=== PATIENT | male | born 1965 ===

== ENCOUNTER 2016-10-23 10:27 | Inpatient (IN) | payer OTHER ==
[2016-10-23 10:34] VITALS: BMI 21.2
--- NOTE | 2016-10-23 11:14 | ED PDOC ---
HPI: General Adult Time Seen by Provider: 10/23/16 10:39 Chief Complaint (Nursing): Weakness/Neurological Deficit Chief Complaint (Provider): Weakness History Per: Patient, Family History/Exam Limitations: no limitations Onset/Duration Of Symptoms: Days Current Symptoms Are (Timing): Still Present Additional Complaint(s): Patient is a 51 year old male who presents to ED accompanied by family for 6 months of generalized weakness, weight loss and dry mouth. Patient states that he has unintentionally lost 50 pounds in 6 months with increased weakness. States that his feet occasionally swell making it difficult to walk. Denies any onset symptoms. States that due to transportation complications he is unable to make it to the clinic for evaluation. Denies appetite changes, nausea, vomiting or dizziness. Past Medical History Reviewed: Historical Data, Nursing Documentation, Vital Signs Vital Signs: Last Vital Signs Temp 98.1 F 10/25/16 08:25 Pulse 76 10/25/16 08:25 Resp 20 10/25/16 08:25 BP 99/65 L 10/25/16 08:25 Pulse Ox 96 10/25/16 08:25 - Medical History PMH: No Chronic Diseases - Surgical History Surgical History: No Surg Hx - Family History Family History: States: No Known Family Hx - Living Arrangements Living Arrangements: Alone - Social History Current smoker - smoking cessation education provided: Yes Alcohol: Occasional Drugs: Denies - Immunization History Hx Tetanus Toxoid Vaccination: No Hx Influenza Vaccination: No Hx Pneumococcal Vaccination: No - Home Medications Home Medications: Ambulatory Orders Medication Instructions Recorded No Known Home Med 10/23/16 - Allergies Allergies/Adverse Reactions: Allergies Allergy/AdvReac Type Severity Reaction Status Date / Time No Known Allergies Allergy Verified 10/23/16 11:00 Review of Systems ROS Statement: Except As Marked, All Systems Reviewed And Found Negative Constitutional: Positive for: Weakness (generalized), Weight loss. Negative for : Fever, Chills Eyes: Negative for: Vision Change Cardiovascular: Negative for: Chest Pain, Palpitations Respiratory: Negative for: Shortness of Breath Gastrointestinal: Negative for: Nausea, Vomiting, Abdominal Pain, Diarrhea Skin: Negative for: Rash Neurological: Negative for: Weakness, Numbness, Headache, Dizziness Physical Exam - Reviewed Nursing Documentation Reviewed: Yes Vital Signs Reviewed: Yes - Physical Exam Appears: Positive for: Non-toxic (thin appearing), No Acute Distress Skin: Positive for: Normal Color, Warm Eye Exam: Positive for: Normal appearance, PERRL Neck: Positive for: Normal, Painless ROM Cardiovascular/Chest: Positive for: Regular Rate, Rhythm. Negative for: Murmur Respiratory: Positive for: Normal Breath Sounds. Negative for: Respiratory Distress Gastrointestinal/Abdominal: Positive for: Normal Exam. Negative for: Tenderness , Distended Extremity: Positive for: Normal ROM. Negative for: Pedal Edema Neurologic/Psych: Positive for: Alert, Oriented. Negative for: Motor/Sensory Deficits - Laboratory Results Result Diagrams: 10/24/16 06:40 10/25/16 06:10 - ECG Interpretation Of ECG: NSR @ 93, nonspecific ST and T abnormality. O2 Sat by Pulse Oximetry: 96 (RA) Pulse Ox Interpretation: Normal - Radiology X-Ray: Read By Radiologist (No focal airspace opacity. Please note that chest radiographs have low sensitivity for small pulmonary nodules. If indicated, chest CT should be obtained.) Medical Decision Making Medical Decision Making: Time: 1105 Initial impression: Weight loss Initial plan: -- EKG -- CMP -- Urine dip -- CBC -- CXR -- U/A Scribe Attestation: Documented by Fauzia Holly acting as a scribe for Natividad Angeles MD MD Scribe Attestation: All medical record entries made by the Scribe were at my direction and personally dictated by me. I have reviewed the chart and agree that the record accurately reflects my personal performance of the history, physical exam, medical decision making, and the department course for this patient. I have also personally directed, reviewed, and agree with the discharge instructions and disposition. Disposition - Clinical Impression Clinical Impression: Diabetes mellitus, new onset - Patient ED Disposition Is Patient to be Admitted: Yes - Disposition Disposition Time: 12:30 Condition: STABLE - Pt Status Changed To: Hospital Disposition Of: Inpatient - Admit Certification Admit to Inpatient:: After my assessment, the patient will require hospitalization for at least two midnights. This is because of the severity of symptoms shown, intensity of services needed, and/or the medical risk in this patient being treated as an outpatient. - POA Present On Arrival: Poor Glycemic Control
[2016-10-23] MEDS ORDERED: Sodium Chloride 0.9% 1,000 ML IV STA ×2 (11:30→12:03)
[2016-10-23 11:37] LABS: BASO % 0.4 % (0.0-2.0); EOS % 0.1 % (0.0-4.0); HEMATOCRIT 41.5 % (35.0-51.0); LYMPH # 0.9 K/uL (1.0-4.3); MEAN CELL VOLUME 99.8 fl (80.0-94.0); MEAN CORPUSCULAR HEMOGLOBIN 33.3 pg (27.0-31.0); MEAN CORPUSCULAR HGB CONC 33.3 g/dL (33.0-37.0); MEAN PLATELET VOLUME 7.9 fl (7.2-11.7); MONO # 0.3 K/uL (0.0-0.8); MONO % 5.6 % (0.0-10.0); NEUT # 4.2 K/uL (1.8-7.0); NEUT % 77.9 % (50.0-75.0); NRBC % 0.1 % (0.0-0.0); RED CELL DISTRIBUTION WIDTH 13.1 % (11.5-14.5); WHITE BLOOD COUNT 5.3 K/uL (4.8-10.8)
[2016-10-23 11:51] LABS: ALB/GLOB RATIO 1.4 (1.0-2.1); ALKALINE PHOSPHATASE 250 U/L (38-126); ALT/SGPT 25 U/L (21-72); AST/SGOT 72 U/L (17-59); BILIRUBIN,TOTAL 1.6 mg/dl (0.2-1.3); BLOOD UREA NITROGEN 12 mg/dl (9-20); CALCIUM 8.7 mg/dL (8.4-10.2); CARBON DIOXIDE 21 mmol/L (22-30); CHLORIDE 92 mmol/L (98-107); GFR AFRICAN-AMERICAN > 60; POTASSIUM 5.4 MMOL/L (3.6-5.0); RBC URINE 1 /hpf (0-3); SODIUM 127 mmol/l (132-148); TOTAL PROTEIN 8.2 G/DL (6.3-8.2); URINE BILIRUBIN NEGATIVE (NEGATIVE); URINE BLOOD NEGATIVE (NEGATIVE); URINE COLOR STRAW (YELLOW); URINE GLUCOSE (UA) >=500 mg/dL (Normal); URINE KETONE TRACE mg/dL (NEGATIVE); URINE LEUKOCYTE ESTERASE NEG Leu/uL (Negative); URINE PROTEIN NEGATIVE (NEGATIVE); URINE UROBILINOGEN 0.2-1.0 mg/dL (0.2-1.0); WBC URINE < 1 /hpf (0-5)
[2016-10-23 12:03] LABS: GLUCOSE,RANDOM 862 mg/dL (75-110)
[2016-10-23 12:07] LABS: VENOUS BLOOD GAS BASE EXCESS 0.3 mmol/L (0.0-2.0); VENOUS BLOOD GAS PCO2 42 mmHg (40-60); VENOUS BLOOD PH 7.39 (7.32-7.43)
--- NOTE | 2016-10-23 12:08 | RAD ---
HISTORY: Weight loss COMPARISON: No prior. TECHNIQUE: Chest PA and lateral FINDINGS: LUNGS: No focal airspace opacity. PLEURA: No significant pleural effusion identified. No pneumothorax apparent. CARDIOVASCULAR: Normal. OSSEOUS STRUCTURES: No significant abnormalities. VISUALIZED UPPER ABDOMEN: Normal. OTHER FINDINGS: None. IMPRESSION: No focal airspace opacity. Please note that chest radiographs have low sensitivity for small pulmonary nodules. If indicated, chest CT should be obtained.
--- NOTE | 2016-10-23 12:37 | CP.PCM.HP ---
History of Present Illness - History of Present Illness History of Present Illness: Chief Complaint: dizzy, weak HPI: 51 year old no known chronic diseases presents with a 6 month hx of 50 lb weight loss, and a 1 day history of moderate worsening weakness associated with fatigue, dizziness. Patient also complains of blurry vision for the past few months, as well as paresthesias in bilateral feet when walking. In ER, glucose 800+. 2 liters NS given, 10 units insulin. Patient not acidotic, no AG, trace ketones in urine. Pt to be admitted for new onset diabetes, will monitor and correct glucose closely. Vitals are stable no acute distress. ROS: as per HPI, all other systems reviewed and negative by me PMH: denies PSH: denies Family History: denies Social History: denies ETOH, IVDU. occasional tobacco use Home Medications: denies Allergies: NKDA VITALS REVIEWED Constitutional- thin, cooperative, awake, alert. Head- NCAT, PERRL Eye- PERRL, normal accommodation ENT- normal exam, MMM. Neck- normal inspection, supple, no JVD Respiratory- decreased BS, no wheezes rales rhonchi Cardiovascular- RRR, +S1, +S2 no MRG GI/Abdominal- normal bowel sounds, soft Extremities Exam- normal capillary refill, normal inspection Neurological Exam- alert, oriented Labs: 10/23/16 11:24 10/23/16 11:24 Imaging Studies: CXR: no active disease Active Medications: 10/23/16 12:03 Sodium Chloride 0.9% 1,000 ml IV 1,000 mls/hr 10/23/16 16:30 Insulin Lispro [humALOG] See Protocol [facility] 10/24/16 09:00 Enoxaparin [Lovenox] 40 mg SC DAILY Assessment and Plan: 51 year old no known chronic diseases presents with a 6 month hx of 50 lb weight loss, and a 1 day history of moderate worsening weakness associated with fatigue, dizziness. Patient also complains of blurry vision for the past few months, as well as paresthesias in bilateral feet when walking. In ER, glucose 800+. 2 liters NS given, 10 units insulin. No acidosis, no AG, trace ketones in urine. Pt to be admitted for new onset diabetes, will monitor and correct glucose closely. Repeat BMP currently pending. New Onset DM/H BG 862 on arrival to ER, after 10 units Regular insulin BG 447 A1C 18.6 Accuchecks q4 hour on ISS protocol Received 2 L NS in ER, 1 more liter ordered on floor Then continue to hydrate patient NS @ 125cc/hr Repeat BMP again tonight given insulin use Glipizide 10 BID before meals Levemir 10 u HS to start tonight Consult Dr. Thayer Endocrinology Hypokalemia 3.5 with insulin use KCl 40 mEq given once Repeat BMP scds Present on Admission - Present on Admission Any Indicators Present on Admission: No Past Patient History - Past Social History Alcohol: Occasional Drugs: Denies - PSYCHIATRIC Hx Substance Use: No Meds Allergies/Adverse Reactions: Allergies Allergy/AdvReac Type Severity Reaction Status Date / Time No Known Allergies Allergy Verified 10/23/16 11:00 Results - Vital Signs Recent Vital Signs: Last Vital Signs Temp 98.3 F 10/23/16 10:34 Pulse 99 H 10/23/16 10:34 Resp 19 10/23/16 10:34 BP 125/78 10/23/16 10:34 Pulse Ox 96 10/23/16 11:20 - Labs Result Diagrams: 10/23/16 11:24 10/23/16 11:24 Labs: Laboratory Results - last 24 hr 10/23/16 10/23/16 10/23/16 11:24 11:24 11:24 WBC 5.3 RBC 4.16 L Hgb 13.8 Hct 41.5 MCV 99.8 H MCH 33.3 H MCHC 33.3 RDW 13.1 Plt Count 277 MPV 7.9 Neut % (Auto) 77.9 H Lymph % (Auto) 16.0 L Day % (Auto) 5.6 Eos % (Auto) 0.1 Baso % (Auto) 0.4 Neut # 4.2 Lymph # 0.9 L Day # 0.3 Eos # 0.0 Baso # 0.0 pO2 VBG pH VBG pCO2 VBG HCO3 VBG O2 Sat (Calc) VBG Base Excess Sodium 127 L Potassium 5.4 H Chloride 92 L Carbon Dioxide 21 L Anion Gap 19 BUN 12 Creatinine 0.4 L Est GFR ( Amer) > 60 Est GFR (Non-Af Amer) > 60 Random Glucose 862 H* Calcium 8.7 Total Bilirubin 1.6 H AST 72 H ALT 25 Alkaline Phosphatase 250 H Total Protein 8.2 Albumin 4.8 Globulin 3.4 Albumin/Globulin Ratio 1.4 Urine Color Straw Urine Clarity Clear Urine pH 6.0 Ur Specific Carnation 1.028 Urine Protein Negative Urine Glucose (UA) >=500 Urine Ketones Trace Urine Blood Negative Urine Nitrate Negative Urine Bilirubin Negative Urine Urobilinogen 0.2-1.0 Ur Leukocyte Esterase Neg Urine RBC (Auto) 1 Urine Microscopic WBC < 1 10/23/16 12:04 WBC RBC Hgb Hct MCV MCH MCHC RDW Plt Count MPV Neut % (Auto) Lymph % (Auto) Day % (Auto) Eos % (Auto) Baso % (Auto) Neut # Lymph # Day # Eos # Baso # pO2 81 H VBG pH 7.39 VBG pCO2 42 VBG HCO3 25.1 VBG O2 Sat (Calc) 96.7 H VBG Base Excess 0.3 Sodium Potassium Chloride Carbon Dioxide Anion Gap BUN Creatinine Est GFR ( Amer) Est GFR (Non-Af Amer) Random Glucose Calcium Total Bilirubin AST ALT Alkaline Phosphatase Total Protein Albumin Globulin Albumin/Globulin Ratio Urine Color Urine Clarity Urine pH Ur Specific Carnation Urine Protein Urine Glucose (UA) Urine Ketones Urine Blood Urine Nitrate Urine Bilirubin Urine Urobilinogen Ur Leukocyte Esterase Urine RBC (Auto) Urine Microscopic WBC
[2016-10-23] MEDS ORDERED: Insulin Lispro (humaLOG) 100 Units/ml Inj SC STA ×2 (13:45→15:28)
[2016-10-23] MEDS ORDERED: Insulin Regular 100 units/ml SC STA (13:48)
[2016-10-23 15:20] LABS: BLOOD UREA NITROGEN 10 mg/dl (9-20); CALCIUM 8.3 mg/dL (8.4-10.2); CARBON DIOXIDE 21 mmol/L (22-30); CHLORIDE 99 mmol/L (98-107); GFR AFRICAN-AMERICAN > 60; POTASSIUM 3.5 MMOL/L (3.6-5.0); SODIUM 132 mmol/l (132-148)
[2016-10-23 15:23] LABS: GLUCOSE,RANDOM 596 mg/dL (75-110)
[2016-10-23] MEDS ORDERED: Potassium Chloride 20 mEq/15 ml LIQ UD PO ONE (15:27)
[2016-10-23] MEDS: Sodium Chloride 0.9% 1,000 ML IV SCH ×2 (15:45→21:15)
[2016-10-23] MEDS ORDERED: Sodium Chloride 0.9% 1,000 ML IV SCH (15:45)
[2016-10-23] MEDS ORDERED: Insulin Lispro (humaLOG) 100 Units/ml Inj SC SCH (16:30)
[2016-10-23] MEDS ORDERED: Pneumococcal 23-Valent Vaccine IM ONE (17:09)
[2016-10-23] MEDS: Insulin Lispro (humaLOG) 100 Units/ml Inj SC SCH ×2 (17:32→21:15)
--- NOTE | 2016-10-23 18:11 | CON ---
DATE: 10/23/2016 HISTORY OF PRESENT ILLNESS: This is a 51-year-old male with no apparent past medical history presen ting here with generalized body weakness and severe bouts of dizziness and lightheadedness and has be en evaluated to have new onset of uncontrolled type 2 insulin-requiring diabetes, now being referred for diabetic evaluation and management. PAST MEDICAL HISTORY: Essentially unremarkable. FAMILY HISTORY: Positive for hypertension and diabetes. SOCIAL HISTORY: The patient has supportive family. No known substance use. REVIEW OF SYSTEMS: As mentioned above, admits to generalized body weakness with easy fatigability an d tiredness and suboptimal energy level. Also admits to dizziness and lightheadedness, worse in the last few days prior to admission with blurry vision and bifrontal headaches. Also, admits to precord ial chest tightness with progressive shortness of breath, especially on exertion. His oral intake goodwin s been variable and with nausea, dyspepsia, and vague upper abdominal pain. Also, admits to marked p olyuria, nocturia, polydipsia, and about a 50 pound or more weight loss in the last 6 months prior to admission. Also, admits to lower extremity painful paresthesias, especially nocturnally. PHYSICAL EXAMINATION: GENERAL: An male in no apparent distress. VITAL SIGNS: Blood pressure of 140/80, pulse of 100 beats per minute and regular, temperature 98, re spirations 20. Height is 5 feet 3 inches, weight is 120 pounds. HEENT: Head normocephalic. Eyes anicteric with pink conjunctivae. Fundoscopy not possible at this time. Ears, nose and throat otherwise normal. NECK: Supple. Thyroid gland is normal size. No carotid bruits. No cervical adenopathy. CARDIOPULMONARY: Some adynamic precordium. S1, S2 is rapid and regular. LUNGS: Clear to auscultation. ABDOMEN: Flat, soft with positive bowel sounds. EXTREMITIES: No peripheral edema. Pulses are +2 bilaterally. SKIN: Turgor is very coarse and dry and the buccal mucosa is parched and dry. LABORATORY DATA: His chemistries showed a BUN of 12, sodium 127, potassium 5.4, chloride 92, CO2 21, glucose 862 and creatinine 0.4. His hemoglobin A1c is 18.6%, which is quite elevated and indicative of suboptimal metabolic control of his diabetic condition. ASSESSMENT: This is a 51-year-old male with uncontrolled and decompensated type 2 insulin-requiring diabetes, presenting here with hyperosmolar hyperglycemic state and mild ketosis and clinical and bio chemical evidence of dehydration with spurious hyponatremia as noted thereof. He also has elevated l iver transaminases and the possibility of underlying fatty liver and/or biliary disorder such a s cholelithiasis has to be excluded at this time. The markedly elevated A1c level is expected in a p atient untreated and undiagnosed in terms of his diabetic condition. PLAN OF MANAGEMENT: As discussed with the hospitalist today. We will continue the vigorous IV hydra tion, which is probably the most essential modality of treatment at this time in the light of HHS as mentioned, and we will obtain serial chemistries and supplement accordingly as needed. We will also initiate basal insulin with Levemir to be given as 20 units subQ at bedtime daily to start tonight. We will continue the low-dose correction scale using regular insulin as ordered. We will also initia te glipizide given as 10 mg b.i.d. and hold off on metformin, especially in the light of mild ketosis and also because of the tremendous weight loss and the possibility of relative insulin deficiency goodwin s to be excluded at this time. We will consider other oral hypoglycemic therapy DPP-4 inhibito rs, but again if indeed he has insulin deficiency, then this medication would not be effective, but m ore importantly, because of his financial constraints and lack of medical insurance. These medicatio ns are extremely expensive, costing over $200 for a month's supply thereof. We may have to consider the addition of cheaper conventional insulins given for mealtimes and also basally to correct the met abolic decompensation and the increased osmotic diuresis as noted. We will initiate diabetic educati on and dietary instructions also at the time of this admission. We will follow and advise mc y. We will also obtain a serum C-peptide to ascertain his endogenous pancreatic reserve. Shahnaz Thayer MD cc: [id number] TT: 10/23/2016 18:10:55 Confirmation # [id number] Dictation # [id number] ln
[2016-10-23 19:55] LABS: BLOOD UREA NITROGEN 7 mg/dl (9-20); CALCIUM 8.6 mg/dL (8.4-10.2); CARBON DIOXIDE 26 mmol/L (22-30); CHLORIDE 101 mmol/L (98-107); GFR AFRICAN-AMERICAN > 60; GLUCOSE,RANDOM 212 mg/dL (75-110); POTASSIUM 3.2 MMOL/L (3.6-5.0); SODIUM 136 mmol/l (132-148)
[2016-10-23] MEDS ORDERED: Insulin Detemir 100 Units/ml Inj SC SCH ×2 (22:00)
[2016-10-24] MEDS: Insulin Lispro (humaLOG) 100 Units/ml Inj SC SCH ×6 (00:37→21:20)
[2016-10-24] MEDS: Sodium Chloride 0.9% 1,000 ML IV SCH ×2 (05:33→12:18)
[2016-10-24 07:29] LABS: MEAN CELL VOLUME 97.5 fl (80.0-94.0); MEAN CORPUSCULAR HEMOGLOBIN 32.4 pg (27.0-31.0); MEAN CORPUSCULAR HGB CONC 33.2 g/dL (33.0-37.0); RED CELL DISTRIBUTION WIDTH 12.7 % (11.5-14.5); WHITE BLOOD COUNT 4.8 K/uL (4.8-10.8)
[2016-10-24 07:43] LABS: ALKALINE PHOSPHATASE 73 U/L (38-126); ALT/SGPT 40 U/L (21-72); AST/SGOT 35 U/L (17-59); BILIRUBIN,TOTAL 0.5 mg/dl (0.2-1.3); BLOOD UREA NITROGEN 7 mg/dl (9-20); CALCIUM 8.6 mg/dL (8.4-10.2); CARBON DIOXIDE 27 mmol/L (22-30); CHLORIDE 105 mmol/L (98-107); CHOLESTEROL 131 mg/dL (0-199); GFR AFRICAN-AMERICAN > 60; GLUCOSE,RANDOM 76 mg/dL (75-110); LIPASE 117 U/L (23-300); POTASSIUM 3.1 MMOL/L (3.6-5.0); SODIUM 140 mmol/l (132-148)
[2016-10-24 07:56] LABS: ALB/GLOB RATIO 1.2 (1.0-2.1)
--- NOTE | 2016-10-24 08:08 | CARD ---
APPROVED REPORT EKG Measurement Heart [id number] NH [id number] [id number] <Conclusion> Normal sinus rhythm Nonspecific ST and T wave abnormality Abnormal ECG
[2016-10-24 08:12] LABS: THYROID STIMULATING HORMONE 0.74 mIU/ML (0.46-4.68)
[2016-10-24] MEDS ORDERED: Potassium Chloride 20 mEq ER Tab PO ONE (09:28)
[2016-10-24] MEDS: Enoxaparin 40 mg Syringe SC SCH (10:14)
--- NOTE | 2016-10-24 14:39 | CP.PCM.PN ---
Subjective - Date & Time of Evaluation Date of Evaluation: 10/24/16 Time of Evaluation: 14:30 - Subjective Subjective: Hospitalist Progress Note (Patient was seen and examined at 2:30 PM 10/24/16 656- 2 with Mima [phone] present) 51 year old male who was admitted on 10/23/16 with a 6 month history of 50 pound weight loss and worsening weakness associated with fatigue/dizziness, blurriness of vision, and paresthesias in bilateral feet with walking. He was found to have an elevated Blood Glucose in the 800s and HgBA1C of 18.6 and was diagnosed with New Onset DM. Patient has not seen a doctor in years as he does not have insurance and is undocumented resident ROS: Left low back pain mild Blurriness of vision Bilateral Feet Paresthesias NO other complaints upon FULL ROS Exam HEENT: NCA, EOMI, PERRLA, NO pharyngeal erythema/exudate, NO lymphadenopathy, NO thyromegaly, Oral Mucosa and Nasal Turbinates are moist Cardio: NS1 and NS2, NO M/R/g Respiratory: CTA B/L, NO R/R/W GI: BSx4, Soft, NT, ND, NO HSM, NO guarding/rebound tenderness Ext: Pulses are strong and equal, NO edema, Capillary Refill is 2 seconds Neuro: CN II through XII are grossly intact Assessment and Plan: 1). Uncontrolled DM Endocrinology Dr. Thayer Blood glucose better controlled on Levemir 20 Unit SC QHS and Glipizide 10 mg PO 2x/day, and Lispro ISS, Metformin 500 mg PO 2x/day F/U C Peptide F/U Lipid Panel: add statin if necessary F/U TSH Hold off on adding SIS I as blood pressure is low side of normal 2). Hypokalemia 40 mEQ KCl x 1 dose given for K at 3.1 F/U Mag, Phos 3). Prophylactic Measure Lovenox 40 mg SC 1x/day Protonix 40 mg PO 1x/day Mima has filled out [facility] Paperwork and will bring in on 10/25/16 Patient will need Opthalmology evaluation through clinic as well as health coordination through the clinic. Objective - Vital Signs/Intake and Output Vital Signs (last 24 hours): Temp Pulse Resp BP Pulse Ox 97.9 F 78 20 90/58 L 95 10/24/16 08:35 10/24/16 08:35 10/24/16 08:35 10/24/16 08:35 10/24/16 08:35 - Medications Medications: Current Medications Enoxaparin Sodium (Lovenox) 40 mg SC DAILY [facility] PRN Reason: Protocol Last Admin: 10/24/16 10:14 Dose: 40 mg Glipizide (Glucotrol) 10 mg PO ACBD PATY Last Admin: 10/24/16 06:30 Dose: 10 mg Insulin Human Lispro (Humalog) 0 units SC Q4 PATY PRN Reason: Protocol Last Admin: 10/24/16 13:30 Dose: 1 u Metformin HCl (Glucophage) 500 mg PO BIDWM PATY - Labs Labs: 10/24/16 06:40 10/24/16 06:40
--- NOTE | 2016-10-24 14:52 | PN ---
DATE: 10/24/2016 ROOM: 656. SUBJECTIVE: This is a 51-year-old male with recent uncontrolled type 2 insulin-requiring diabetes, p resenting here with hyperosmolar hyperglycemic state and dehydration and is now being followed closel y for metabolic management. His glycemic levels are fluctuating, but much improved at this time and the latest glucose levels have ranged from 101-257 and 289 mg/dL. The latest chemistries showed a BU N of 7, sodium 140, potassium 3.1, chloride 105, CO2 27, glucose 76, and creatinine 0.4. So, at this time, we will actually discontinue the Levemir therapy as given and continue the glipizide given as 10 mg b.i.d. before meals and we will add metformin given as 500 mg b.i.d. after meals to start today as ordered. We will titrate incrementally as indicated to optimize metabolic control. We will cont inue the low-dose correction scale using regular insulin as given. We will obtain serial chemistries and supplement accordingly as needed. We will follow. Shahnaz Thayer MD cc: [id number] TT: 10/24/2016 14:51:44 Confirmation # [id number] Dictation # [id number] federico
[2016-10-25] MEDS: Pantoprazole 40 mg EC Tab PO SCH ×2 (00:10→09:26)
[2016-10-25] MEDS: Insulin Lispro (humaLOG) 100 Units/ml Inj SC SCH ×3 (01:19→09:20)
[2016-10-25 07:39] LABS: BLOOD UREA NITROGEN 10 mg/dl (9-20); CALCIUM 8.8 mg/dL (8.4-10.2); CARBON DIOXIDE 28 mmol/L (22-30); CHLORIDE 99 mmol/L (98-107); GFR AFRICAN-AMERICAN > 60; GLUCOSE,RANDOM 333 mg/dL (75-110); MAGNESIUM 1.8 MG/DL (1.6-2.3); PHOSPHOROUS 3.7 mg/dl (2.5-4.5); POTASSIUM 3.8 MMOL/L (3.6-5.0); SODIUM 136 mmol/l (132-148)
[2016-10-25 08:25] VITALS: RESP 20
[2016-10-25] MEDS: Enoxaparin 40 mg Syringe SC SCH (09:26)
--- NOTE | 2016-10-25 14:03 | CP.PCM.DIS ---
Provider - Provider Date of Admission: 10/23/16 12:30 Attending physician: Georgia Cohen DO Primary care physician: He does not have one Consults: Endocrine Dr. Odalis Thayer Time Spent in preparation of Discharge (in minutes): 40 Diagnosis - Discharge Diagnosis (1) Uncontrolled diabetes mellitus Status: Acute Hospital Course - Lab Results Lab Results: Most Recent Lab Values WBC 4.8 K/uL (4.8-10.8) 10/24/16 06:40 RBC 3.79 Mil/uL (4.40-5.90) L 10/24/16 06:40 Hgb 12.3 g/dL (12.0-18.0) 10/24/16 06:40 Hct 37.0 % (35.0-51.0) 10/24/16 06:40 MCV 97.5 fl (80.0-94.0) H D 10/24/16 06:40 MCH 32.4 pg (27.0-31.0) H 10/24/16 06:40 MCHC 33.2 g/dL (33.0-37.0) 10/24/16 06:40 RDW 12.7 % (11.5-14.5) 10/24/16 06:40 Plt Count 255 K/uL (130-400) 10/24/16 06:40 MPV 7.9 fl (7.2-11.7) 10/23/16 11:24 Neut % (Auto) 77.9 % (50.0-75.0) H 10/23/16 11:24 Lymph % (Auto) 16.0 % (20.0-40.0) L 10/23/16 11:24 Brooke % (Auto) 5.6 % (0.0-10.0) 10/23/16 11:24 Eos % (Auto) 0.1 % (0.0-4.0) 10/23/16 11:24 Baso % (Auto) 0.4 % (0.0-2.0) 10/23/16 11:24 Neut # 4.2 K/uL (1.8-7.0) 10/23/16 11:24 Lymph # 0.9 K/uL (1.0-4.3) L 10/23/16 11:24 Brooke # 0.3 K/uL (0.0-0.8) 10/23/16 11:24 Eos # 0.0 K/uL (0.0-0.7) 10/23/16 11:24 Baso # 0.0 K/uL (0.0-0.2) 10/23/16 11:24 pO2 81 mm/Hg (30-55) H 10/23/16 12:04 VBG pH 7.39 (7.32-7.43) 10/23/16 12:04 VBG pCO2 42 mmHg (40-60) 10/23/16 12:04 VBG HCO3 25.1 mmol/L 10/23/16 12:04 VBG O2 Sat (Calc) 96.7 % (40-65) H 10/23/16 12:04 VBG Base Excess 0.3 mmol/L (0.0-2.0) 10/23/16 12:04 Sodium 136 mmol/l (132-148) 10/25/16 06:10 Potassium 3.8 MMOL/L (3.6-5.0) 10/25/16 06:10 Chloride 99 mmol/L (98-107) 10/25/16 06:10 Carbon Dioxide 28 mmol/L (22-30) 10/25/16 06:10 Anion Gap 13 (10-20) 10/25/16 06:10 BUN 10 mg/dl (9-20) 10/25/16 06:10 Creatinine 0.4 mg/dL (0.8-1.5) L 10/25/16 06:10 Est GFR ( Amer) > 60 10/25/16 06:10 Est GFR (Non-Af Amer) > 60 10/25/16 06:10 POC Glucose (mg/dL) 453 mg/dL (65-110) H* 10/25/16 09:14 Random Glucose 333 mg/dL (75-110) H 10/25/16 06:10 Hemoglobin A1c 18.6 % (4.2-6.5) H 10/23/16 11:30 Calcium 8.8 mg/dL (8.4-10.2) 10/25/16 06:10 Phosphorus 3.7 mg/dl (2.5-4.5) 10/25/16 06:10 Magnesium 1.8 MG/DL (1.6-2.3) 10/25/16 06:10 Total Bilirubin 0.5 mg/dl (0.2-1.3) 10/24/16 06:40 GGT 134 U/L (8-78) H 10/24/16 06:40 AST 35 U/L (17-59) 10/24/16 06:40 ALT 40 U/L (21-72) 10/24/16 06:40 Alkaline Phosphatase 73 U/L (38-126) 10/24/16 06:40 Troponin I 0.0170 ng/mL (0.00-0.120) 10/23/16 11:30 Total Protein 6.0 G/DL (6.3-8.2) L 10/24/16 06:40 Albumin 3.3 g/dL (3.5-5.0) L D 10/24/16 06:40 Globulin 2.7 gm/dL (2.2-3.9) 10/24/16 06:40 Albumin/Globulin Ratio 1.2 (1.0-2.1) 10/24/16 06:40 Triglycerides 63 mg/DL (0-149) 10/24/16 06:40 Cholesterol 131 mg/dL (0-199) 10/24/16 06:40 LDL Cholesterol Direct 72 mg/dL (0-129) 10/24/16 06:40 HDL Cholesterol 41 MG/DL (30-70) 10/24/16 06:40 Lipase 117 U/L (23-300) 10/24/16 06:40 TSH 3rd Generation 0.74 mIU/ML (0.46-4.68) 10/24/16 06:40 Urine Color Straw (YELLOW) 10/23/16 11:24 Urine Clarity Clear (Clear) 10/23/16 11:24 Urine pH 6.0 (5.0-8.0) 10/23/16 11:24 Ur Specific [place] 1.028 (1.003-1.030) 10/23/16 11:24 Urine Protein Negative mg/dL (NEGATIVE) 10/23/16 11:24 Urine Glucose (UA) >=500 mg/dL (Normal) 10/23/16 11:24 Urine Ketones Trace mg/dL (NEGATIVE) 10/23/16 11:24 Urine Blood Negative (NEGATIVE) 10/23/16 11:24 Urine Nitrate Negative (NEGATIVE) 10/23/16 11:24 Urine Bilirubin Negative (NEGATIVE) 10/23/16 11:24 Urine Urobilinogen 0.2-1.0 mg/dL (0.2-1.0) 10/23/16 11:24 Ur Leukocyte Esterase Neg Nesha/uL (Negative) 10/23/16 11:24 Urine RBC (Auto) 1 /hpf (0-3) 10/23/16 11:24 Urine Microscopic WBC < 1 /hpf (0-5) 10/23/16 11:24 - Hospital Course Hospital Course: Hospitalist Discharge Summary Note (Patient was seen and examined at 1:45 PM 656-2) 51 year old male who was admitted on 10/23/16 with a 6 month history of 50 pound weight loss and worsening weakness associated with fatigue/dizziness, blurriness of vision, and paresthesias in bilateral feet with walking. He was found to have an elevated Blood Glucose in the 800s and HgBA1C of 18.6 and was diagnosed with New Onset DM. Patient has not seen a doctor in years as he does not have insurance and is undocumented resident. His blood glucose, although still in the 200s and 300s, was better controlled on Lispro ISS, NPH 14 units QHS, Lispro 75/25 Mix 30 Units ACB and 20 Units ACD. Due to lack of insurance he is being discharged on NPH 14 units QHS and Humalin 70/30 Mis 30 Units ACB and 20 Units ACD (as recommended by Endocrine Dr. Thayer) both which can be purchased at a cheaper matthew at [facility]. Nurse Estefania has shown patient how to administer Insulin. Vessel Slagman has provided written diet recommendations. Patient was also instructed to schedule an appointment with the [facility] at [address] [place] [address] within 7 days by calling for an appointment for coordination of his health care. Please see individual Assessment and Plans below for what was done for the patient. ROS: Left low back pain mild is improved Blurriness of vision that is chronic Bilateral Feet Paresthesias that is chronic NO other complaints upon FULL ROS Exam HEENT: NCA, EOMI, PERRLA, NO pharyngeal erythema/exudate, NO lymphadenopathy, NO thyromegaly, Oral Mucosa and Nasal Turbinates are moist Cardio: NS1 and NS2, NO M/R/g Respiratory: CTA B/L, NO R/R/W GI: BSx4, Soft, NT, ND, NO HSM, NO guarding/rebound tenderness Ext: Pulses are strong and equal, NO edema, Capillary Refill is 2 seconds Neuro: CN II through XII are grossly intact Assessment and Plan: 1). Uncontrolled DM Endocrinology Dr. Thayer Blood glucose better controlled on Levemir 20 Unit SC QHS and Glipizide 10 mg PO 2x/day, and Lispro ISS, Metformin 500 mg PO 2x/day F/U C Peptide F/U Lipid Panel: add statin if necessary F/U TSH Hold off on adding SIS I as blood pressure is low side of normal 2). Hypokalemia Resolved after 40 mEQ of KCl 3). Prophylactic Measure Lovenox 40 mg SC 1x/day Protonix 40 mg PO 1x/day The following instructions were explained to the patient and a copy of this discharge summary was provided: 1). Please schedule an appointment with the [facility] in 7 days by calling [phone]. It is located on [address] [place] [address] in [place], [place]. It is very important for you to do this so that your health care can be coordinated. 2). Please have the following prescription filled at [facility]: NPH Insulin 14 Units Subcutaneous at bedtime Humulin 70/30 Mix: 30 Units Subcutaneous before Breakfast and 20 units before Dinner Insulin syringes and needles 3). Please obtain glucose measuring device and measure and record your blood glucose in the following manner: Once before breakfast on Day 1, then before lunch on Day 2, then before dinner on Day 3, then before bedtime on Day, then repeat this cycle. Bring a copy of these blood glucose readings with you to your appointment at the [facility]. 4). Please follow the dietary recommendations provided to you by the workforce development vice president. 5). Please take care and be well. Cm Evans D.O. Discharge Plan - Follow Up Plan Condition: FAIR Disposition: HOME/ ROUTINE Instructions: Diabetes Mellitus Type 2 in Adults (DC)
[2016-10-25] MEDS ORDERED: Insulin Regular 100 units/ml SC STA (15:00)
--- NOTE | 2016-10-25 15:11 | PN ---
DATE: 10/25/2016 ROOM: 656 SUBJECTIVE: This is a 51-year-old male with recent diagnosis of uncontrolled type 2 insulin-requirin g diabetes, presenting here with hyperosmolar hyperglycemic state and dehydration and is now being fo llowed closely for metabolic management. He received vigorous IV hydration and intensive insulin the rapy as given. However, with the initiation of oral hypoglycemic therapy given in a dual drug combin ation, his glycemic levels are still fluctuating with marked glycemic accelerations today and overnig ht as noted. His glucose levels have ranged from 317 - 453 mg/dL. His chemistries showed a BUN of 1 0, sodium 136, potassium 3.8, chloride 99, CO2 28, glucose 333 and creatinine 0.4. So, at this time, we will actually discontinue the metformin medication and possibly even the glipizide, although we w ill keep him on the same dose for now. We will start him now on a combination of premixed insulin re gimen to cover the mealtimes and also basal insulin to cover the overnight basal insulin requirements . We will start with Humulin NPH given as 14 units subQ at bedtime daily to start tonight. We will also add Humulin 70/30 given as 30 units a.c. breakfast and 20 units a.c. dinner to start today. We will modify the coverage scale to obviate hypoglycemia and detailed orders have been given. However, we do not carry Humulin 70/30, which is the more affordable and cheaper insulin, but we only have in the hospital the insulin analog Humalog 75/25 which will be given only for inpatient hospital use. The more conventional insulins are affordable and cheaper for the patient, especially as this patient has no insurance and will have to self-pay his insulin prescriptions. He will follow with the clini c for outpatient diabetic and medical management. Discussed with the hospitalist and also with the [facility] staff regarding the aforementioned recommendations. He will also be taught insulin self-admin istration by the nurse in charge today, as discussed accordingly. Shahnaz Thayer MD cc: [id number] TT: 10/25/2016 15:10:52 Confirmation # [id number] Dictation # [id number] jn
[2016-10-25 16:22] VITALS: BP 112/69; PULSE 78; TEMP 97.6; O2SAT 95
[2016-10-25] MEDS ORDERED: Insulin Lispro Mix 75/25 100 units/ml (HumaLog) 10ml SC SCH (16:30)
[2016-10-25] MEDS ORDERED: Insulin Lispro (humaLOG) 100 Units/ml Inj SC SCH (16:30)
[2016-10-25] MEDS ORDERED: Insulin NPH Human 100 Units/ml Inj SC SCH (22:00)
[2016-10-26] MEDS ORDERED: Insulin Lispro Mix 75/25 100 units/ml (HumaLog) 10ml SC SCH (07:30)
--- NOTE | 2016-10-27 15:09 | PQF DM ---
Dr. Evans consult bu Dr. Thayer documented "presenting here with hyperosmolar hyperglycemic state."Please specify if you agree. This form is a permanent part of the medical record Clarification of your documentation is requested to better reflect the severity of illness and intensity of treatment of your patient. Indicators present: [x] Documented diagnosis of Diabetes [] Documented condition [] A1C results [] Diabetic medications [x] Elevated blood glucose [] Nutritional consults [] ADA diet [] Other: [] Location in the medical record that reflects the above clinical findings:[] Treatment Provided: PHYSICIAN'S RESPONSE Based on your medical judgment of the clinical indicators outlined above, are you treating this patient for a known or suspected: [] Diabetes Mellitus, Type I [] Controlled [] Uncontrolled [] Diabetes Mellitus, Type II [] Controlled [] Uncontrolled [] Diabetes, Steroid induced [] Controlled [] Uncontrolled [] Diabetic conditions/complications [] Other, please indicate [] [] If Unable to Determine, please check the box, sign and date. Present On Admission (POA) Indicator: [] Present at the time of admission [] Not present at the time of admission [] Clinically Undetermined In responding to this query, please exercise your independent professional judgment. The fact that a question is asked does not imply that any particular answer is desired or expected. Thank you for your clarification on this documentation. If you have any questions please call:[ ] * Thank you, [ ]Marilu LUNDBERG Coder STEFANI
== END 2016-10-25 16:32 | disposition home or self-care (01) | DRG 294 ==
LOC: H.ER 10:27 → H.ERHOLD 12:30 → H.MEDSURG1 14:24
PROVIDERS: ADMIT Student in an Organized Health Care Education/Training Program; ATTEND Student in an Organized Health Care Education/Training Program
PROC: 3E0234Z Introduction of Serum, Toxoid and Vaccine into Muscle, Percutaneous Approach (ICD-10-PCS; principal; 2016-10-24)
DX: E10.65 Type 1 diabetes mellitus with hyperglycemia (principal); E87.1 Hypo-osmolality and hyponatremia; E86.0 Dehydration; E87.6 Hypokalemia; Z23 Encounter for immunization; Z79.4 Long term (current) use of insulin; M54.5 Low back pain

== ENCOUNTER 2016-10-31 23:45 | Inpatient (IN) | payer OTHER ==
[2016-10-31 23:45] VITALS: BMI 21.2
[2016-11-01] MEDS: Sodium Chloride 0.9% 2,000 ML IV STA ×2 (00:29→01:34)
--- NOTE | 2016-11-01 00:34 | ED PDOC ---
Hyperglycemia/Hypoglycemia Time Seen by Provider: 11/01/16 00:03 Chief Complaint (Nursing): High Blood Sugar Chief Complaint (Provider): polyuria, polydipsia, weakness, blurry vision History Per: Patient History/Exam Limitations: no limitations Onset/Duration Of Symptoms: Hrs Current Symptoms Are (Timing): Still Present : The patient does not have any of the infectious symptoms listed except for those marked. Additional Complaint(s): 51yo male newly diagnosed diabetic and recently discharged from floor returns to the ED with c/o polyuria, polydipsia, weakness, and blurry vision. Upon discharge from the floor, family was given instructions on how to obtain cheap prescriptions from [facility]. Family states [facility] is too far from them and therefore were unable to fill any prescriptions. Past Medical History Reviewed: Historical Data, Nursing Documentation, Vital Signs Vital Signs: Last Vital Signs Temp 97 F L 10/31/16 23:49 Pulse 84 10/31/16 23:49 Resp 18 10/31/16 23:49 BP 121/65 10/31/16 23:49 Pulse Ox 99 10/31/16 23:49 - Medical History PMH: Diabetes Denies: Chronic Kidney Disease - Surgical History Surgical History: No Surg Hx - Family History Family History: States: No Known Family Hx - Immunization History Hx Tetanus Toxoid Vaccination: No Hx Influenza Vaccination: No Hx Pneumococcal Vaccination: No - Home Medications Home Medications: Ambulatory Orders Medication Instructions Recorded No Known Home Med 10/23/16 - Allergies Allergies/Adverse Reactions: Allergies Allergy/AdvReac Type Severity Reaction Status Date / Time No Known Allergies Allergy Verified 10/23/16 11:00 Review of Systems ROS Statement: Except As Marked, All Systems Reviewed And Found Negative Constitutional: Positive for: Weakness Eyes: Positive for: Other (blurry vision ) Genitourinary Male: Positive for: Other (polyuria, polydipsia ) Physical Exam - Reviewed Nursing Documentation Reviewed: Yes Vital Signs Reviewed: Yes - Physical Exam Appears: Positive for: No Acute Distress (weak, cachectic ) Head Exam: Positive for: ATRAUMATIC, NORMAL INSPECTION, NORMOCEPHALIC Skin: Positive for: Normal Color, Warm, Dry Eye Exam: Positive for: Normal appearance, EOMI, PERRL ENT: Positive for: Normal ENT Inspection Neck: Positive for: Normal, Painless ROM, Supple Cardiovascular/Chest: Positive for: Regular Rate, Rhythm. Negative for: Murmur , Tachycardia Respiratory: Positive for: Crackles (scattered crackles at the bases b/l ). Negative for: Wheezing, Respiratory Distress Gastrointestinal/Abdominal: Positive for: Normal Exam, Soft. Negative for: Tenderness Back: Positive for: Normal Inspection. Negative for: L CVA Tenderness, R CVA Tenderness Extremity: Positive for: Normal ROM. Negative for: Deformity, Swelling Neurologic/Psych: Positive for: Alert, Oriented - Laboratory Results Result Diagrams: 11/01/16 00:28 11/01/16 00:20 - ECG O2 Sat by Pulse Oximetry: 99 Pulse Ox Interpretation: Normal (RA) Medical Decision Making Medical Decision Makin: Impression: r/o DKA, medication noncompliance Plan: VBG Labs EKG CXR IVF reassess 0211: Case discussed with Dr. Mart and patient will be admitted for further workup and treatment of dehydration and hyperglycemia. PT. not in DKA. Scribe Attestation: Documented by Ramón German acting as a scribe for Homero Rosado MD. Provider Scribe Attestation: All medical record entries made by the Scribe were at my direction and personally dictated by me. I have reviewed the chart and agree that the record accurately reflects my personal performance of the history, physical exam, medical decision making, and the department course for this patient. I have also personally directed, reviewed, and agree with the discharge instructions and disposition. Disposition - Clinical Impression Clinical Impression: Hyperglycemia, Dehydration - Patient ED Disposition Is Patient to be Admitted: Yes Discussed With : Shelley Mart - Disposition Disposition Time: 02:11 Condition: STABLE
[2016-11-01 00:36] LABS: VENOUS BLOOD GAS BASE EXCESS 1.5 mmol/L (0.0-2.0); VENOUS BLOOD GAS PCO2 49 mmHg (40-60); VENOUS BLOOD PH 7.36 (7.32-7.43)
[2016-11-01] MEDS ORDERED: Insulin Regular 100 units/ml IV STA ×2 (00:40→02:08)
[2016-11-01 00:42] LABS: BASO % 0.9 % (0.0-2.0); EOS % 0.8 % (0.0-4.0); HEMATOCRIT 40.8 % (35.0-51.0); LYMPH # 1.4 K/uL (1.0-4.3); LYMPH % 38.3 % (20.0-40.0); MEAN CELL VOLUME 98.5 fl (80.0-94.0); MEAN CORPUSCULAR HEMOGLOBIN 32.6 pg (27.0-31.0); MEAN CORPUSCULAR HGB CONC 33.1 g/dL (33.0-37.0); MEAN PLATELET VOLUME 7.6 fl (7.2-11.7); MONO # 0.3 K/uL (0.0-0.8); MONO % 9.1 % (0.0-10.0); NEUT # 1.9 K/uL (1.8-7.0); NEUT % 50.9 % (50.0-75.0); NRBC % 0.1 % (0.0-0.0); RED CELL DISTRIBUTION WIDTH 12.4 % (11.5-14.5); WHITE BLOOD COUNT 3.7 K/uL (4.8-10.8)
[2016-11-01 00:52] LABS: ALB/GLOB RATIO 1.4 (1.0-2.1); ALKALINE PHOSPHATASE 202 U/L (38-126); ALT/SGPT 46 U/L (21-72); AST/SGOT 36 U/L (17-59); BILIRUBIN,TOTAL 0.6 mg/dl (0.2-1.3); BLOOD UREA NITROGEN 15 mg/dl (9-20); CALCIUM 9.1 mg/dL (8.4-10.2); CARBON DIOXIDE 26 mmol/L (22-30); CHLORIDE 86 mmol/L (98-107); GFR AFRICAN-AMERICAN > 60; LIPASE 384 U/L (23-300); POTASSIUM 4.2 MMOL/L (3.6-5.0); SODIUM 127 mmol/l (132-148); TOTAL PROTEIN 7.7 G/DL (6.3-8.2)
[2016-11-01 01:00] LABS: GLUCOSE,RANDOM 713 mg/dL (75-110)
[2016-11-01 01:20] LABS: RBC URINE 1 /hpf (0-3); URINE BILIRUBIN NEGATIVE (NEGATIVE); URINE BLOOD NEGATIVE (NEGATIVE); URINE COLOR STRAW (YELLOW); URINE GLUCOSE (UA) >=500 mg/dL (Normal); URINE KETONE 20 mg/dL (NEGATIVE); URINE LEUKOCYTE ESTERASE NEG Leu/uL (Negative); URINE PROTEIN NEGATIVE (NEGATIVE); URINE UROBILINOGEN 0.2-1.0 mg/dL (0.2-1.0)
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
[2016-11-01] MEDS ORDERED: Sodium Chloride 0.9% 1,000 ML IV SCH ×2 (02:15→06:45)
[2016-11-01] MEDS: Insulin Regular 100 units/ml SC SCH ×6 (04:20→21:48)
[2016-11-01] MEDS: Sodium Chloride 0.9% 1,000 ML IV SCH ×2 (04:24→08:55)
[2016-11-01 06:09] LABS: CHLORIDE 102 mmol/L (98-107); HEMATOCRIT 35.3 % (35.0-51.0); MEAN CORPUSCULAR HEMOGLOBIN 33.1 pg (27.0-31.0); MEAN CORPUSCULAR HGB CONC 34.5 g/dL (33.0-37.0); RED CELL DISTRIBUTION WIDTH 11.9 % (11.5-14.5); SODIUM 135 mmol/l (132-148); WHITE BLOOD COUNT 4.4 K/uL (4.8-10.8)
[2016-11-01 06:12] LABS: CARBON DIOXIDE 27 mmol/L (22-30); GFR AFRICAN-AMERICAN > 60
[2016-11-01 06:13] LABS: BLOOD UREA NITROGEN 11 mg/dl (9-20); CALCIUM 8.2 mg/dL (8.4-10.2); GLUCOSE,RANDOM 310 mg/dL (75-110)
--- NOTE | 2016-11-01 08:53 | CARD ---
APPROVED REPORT EKG Measurement Heart [id number] <Conclusion> Normal sinus rhythm Normal ECG
[2016-11-01] MEDS: Enoxaparin 40 mg Syringe SC SCH (08:54)
[2016-11-01] MEDS: Potassium CL 10 MEQ/50 ML 50 ML IVPB SCH ×4 (09:11→12:16)
--- NOTE | 2016-11-01 12:05 | RAD ---
HISTORY: hyperglycemia COMPARISON: Chest x-ray performed 10/23/16 TECHNIQUE: Chest, one view. FINDINGS: LUNGS: No focal consolidation. Scattered probable tiny calcified granulomas versus prominent vessels on end. Please note that chest x-ray has limited sensitivity for the detection of pulmonary masses. PLEURA: No significant pleural effusion identified. No definite pneumothorax . CARDIOVASCULAR: The cardiomediastinal silhouette appears within normal limits of size. OSSEOUS STRUCTURES: Degenerative changes of the spine. VISUALIZED UPPER ABDOMEN: Unremarkable. OTHER FINDINGS: None. IMPRESSION: No focal consolidation, significant pleural effusion, or definite pneumothorax identified.
[2016-11-02] MEDS: Insulin Regular 100 units/ml SC SCH ×6 (02:59→21:21)
[2016-11-02 06:58] LABS: BLOOD UREA NITROGEN 10 mg/dl (9-20); CALCIUM 8.8 mg/dL (8.4-10.2); CARBON DIOXIDE 26 mmol/L (22-30); CHLORIDE 103 mmol/L (98-107); GFR AFRICAN-AMERICAN > 60; GLUCOSE,RANDOM 275 mg/dL (75-110); POTASSIUM 3.8 MMOL/L (3.6-5.0); SODIUM 135 mmol/l (132-148)
[2016-11-02] MEDS: Enoxaparin 40 mg Syringe SC SCH (08:36)
[2016-11-02] MEDS: Sodium Chloride 0.9% 1,000 ML IV SCH ×3 (08:39→21:23)
--- NOTE | 2016-11-02 14:26 | CP.PCM.PN ---
Subjective - Date & Time of Evaluation Date of Evaluation: 11/02/16 Time of Evaluation: 11:30 - Subjective Subjective: Patient seen bedside. Complains of some blurry vision. No acute issues overnight. Accuchecks still uncontrolled > 300 BP on the lower side 92/56 HR 68 RR 18 saturating 100 % in RA, afebrile Denies any CP, SOB, palpitations Objective - Vital Signs/Intake and Output Vital Signs (last 24 hours): Temp Pulse Resp BP Pulse Ox 98.2 F 72 18 111/72 98 11/02/16 12:46 11/02/16 12:46 11/02/16 12:46 11/02/16 12:46 11/02/16 12:46 Intake and Output: 11/02/16 11/02/16 06:59 18:59 Intake Total 300 Balance 300 - Medications Medications: Current Medications Enoxaparin Sodium (Lovenox) 40 mg SC DAILY [facility] PRN Reason: Protocol Last Admin: 11/02/16 08:36 Dose: 40 mg Glipizide (Glucotrol) 10 mg PO BIDAC [facility] Last Admin: 11/02/16 08:34 Dose: 10 mg Sodium Chloride (Sodium Chloride 0.9%) 1,000 mls @ 150 mls/hr IV .Q6H40M [facility] Stop: 11/03/16 07:32 Last Admin: 11/02/16 08:39 Dose: 150 mls/hr Insulin Human NPH (Humulin N) 20 units SC HS PATY Insulin Human Regular (Humulin R) 10 units SC AC PATY Insulin Human Regular (Humulin R) 0 units SC ACHS [facility] PRN Reason: Protocol Metformin HCl (Glucophage) 850 mg PO BIDWM [facility] Last Admin: 11/02/16 08:34 Dose: 850 mg Ondansetron HCl (Zofran Inj) 4 mg IVP Q6 PRN PRN Reason: Nausea/Vomiting - Labs Labs: 11/01/16 04:45 11/02/16 05:00 - Constitutional Appears: Non-toxic, No Acute Distress, Cachectic, Chronically Ill - Head Exam Head Exam: ATRAUMATIC, NORMAL INSPECTION, NORMOCEPHALIC - Eye Exam Eye Exam: EOMI, Normal appearance, PERRL Pupil Exam: NORMAL ACCOMODATION - ENT Exam ENT Exam: Mucous Membranes Moist, Normal Exam - Neck Exam Neck Exam: Full ROM, Normal Inspection - Respiratory Exam Respiratory Exam: Clear to Ausculation Bilateral, NORMAL BREATHING PATTERN. absent: Rales, Rhonchi, Wheezes - Cardiovascular Exam Cardiovascular Exam: REGULAR RHYTHM, RRR, +S1, +S2. absent: JVD - GI/Abdominal Exam GI & Abdominal Exam: Soft, Normal Bowel Sounds. absent: Distended, Guarding, Rebound - Rectal Exam Rectal Exam: Deferred - Extremities Exam Extremities Exam: Full ROM, Normal Capillary Refill, Normal Inspection. absent : Pedal Edema - Back Exam Back Exam: NORMAL INSPECTION - Neurological Exam Neurological Exam: Alert, Awake, CN II-XII Intact, Oriented x3 - Psychiatric Exam Psychiatric exam: Normal Affect, Normal Mood - Skin Skin Exam: Dry, Normal Color, Warm Assessment and Plan - Assessment and Plan (Free Text) Assessment: 51 y/o male with recent diagnoses of DM2 for which he was admitted here just over a week ago. He was discharged on 10/25 with prescriptions for diabetes medications, and has been unable to fill them because of cost. Comes in now again with polyuria, polydisia, and blurry vision. No other symptoms. No f/c. 1.Uncontrolled diabetes mellitus still uncontrolled with accuchecks > 300 Hgn A1c 18 Started Metfor,min 850 mg po BID , Glucotrol 10 mg po BId Continue diabetic diet, accuchecks, insulin Diabetic education endo consulted and started on NPH insulin and regular insulin TID Continue IVF 2. DVT prophylaxis SCD
--- NOTE | 2016-11-02 16:20 | CON ---
DATE: 11/02/2016 LOCATION: Room 417. HISTORY OF PRESENT ILLNESS: This is a 51-year-old male with recent diagnosis of uncontrolled type 2 insulin-requiring diabetes and was actually seen from the previous consult and recommended a combinat ion of oral hypoglycemic therapy and insulin therapy, which was actually discontinued by the hospital ist because of financial constraints, and also patient's reluctance or resistance for insulin therapy . He presents once again here with marked hyperglycemic accelerations as noted thereof. PAST MEDICAL HISTORY: As mentioned above, history of type 2 diabetes, previously discharged on metfo rmin given as 850 mg b.i.d. and glipizide given as 10 mg b.i.d. History of hypertension and dyslipid emia. FAMILY HISTORY: Positive for diabetes and hypertension. SOCIAL HISTORY: The patient has supportive family. No known substance use. REVIEW OF SYSTEMS: Admits to generalized body weakness with easy fatigability and tiredness and epis odic dizziness and lightheadedness. No chest pains or palpitations or PNDs. His oral intake is vari able with nausea and dyspepsia and admits to persistent nocturia and polyuria. PHYSICAL EXAMINATION: GENERAL: An average-built male in no apparent distress. VITAL SIGNS: Blood pressure of 140/80, pulse of 74 beats per minute, regular, temperature 98, respir ations 20. Height is 5 feet 7 inches, weight is 110 pounds. HEENT: Head normocephalic. Eyes anicteric with pink conjunctivae. Fundoscopy not possible at this time. Ears, nose, and throat otherwise normal. NECK: Supple. Thyroid gland is normal size. No carotid bruits or any cervical adenopathy. CARDIOPULMONARY: Adynamic precordium. S1, S2 are rapid and regular. LUNGS: Clear to auscultation. ABDOMEN: Flat, soft, with positive bowel sounds. EXTREMITIES: No peripheral edema. Pulses are +2 bilaterally. LABORATORY DATA: Chemistries showed a BUN of 10, sodium 135, potassium 3.8, chloride 103, CO2 26, gl ucose 275, and creatinine 0.3. His glucose values are extremely elevated, ranging from 340 to 381 mg /dL. ASSESSMENT: This is a 51-year-old male, clearly insulin requiring at this time, presenting here with metabolic decompensation and recent hyperglycemic accelerations as noted above. There is a possibil ity of the patient being insulin requiring to optimize his metabolic control as noted on the recent h yperglycemic values as reported. PLAN OF MANAGEMENT: Will restart him back on the affordable and cheaper conventional insulin therapy with a combination of NPH given as 20 units subcutaneous at bedtime daily with regular insulin given as 10 units subcutaneous t.i.d. before meals as ordered. Will continue his glipizide and metformin given as 850 mg b.i.d. and is glipizide 10 mg b.i.d. Will continue the IV hydration as ordered to op timize his electrolytes and fluid losses. Will obtain serial chemistries and supplement accordingly as needed. Will follow with you. Shahnaz Thayer MD cc: [id number] TT: 11/02/2016 16:19:42 Confirmation # [id number] Dictation # [id number] kosta
[2016-11-02] MEDS ORDERED: Insulin NPH Human 100 Units/ml Inj SC SCH (22:00)
[2016-11-03 08:04] VITALS: PULSE 71
[2016-11-03] MEDS: Insulin Regular 100 units/ml SC SCH ×4 (08:57→11:42)
[2016-11-03] MEDS: Enoxaparin 40 mg Syringe SC SCH (09:00)
--- NOTE | 2016-11-03 09:03 | CP.PCM.DIS ---
Provider - Provider Date of Admission: 11/02/16 19:21 Attending physician: Shelley Mart MD Consults: Endo : Dr Wiseman Time Spent in preparation of Discharge (in minutes): 35 Diagnosis - Discharge Diagnosis (1) Uncontrolled type 2 diabetes mellitus with hyperglycemia Status: Acute Hospital Course - Lab Results Lab Results: Most Recent Lab Values WBC 4.4 K/uL (4.8-10.8) L 11/01/16 04:45 RBC 3.67 Mil/uL (4.40-5.90) L 11/01/16 04:45 Hgb 12.2 g/dL (12.0-18.0) 11/01/16 04:45 Hct 35.3 % (35.0-51.0) 11/01/16 04:45 MCV 96.0 fl (80.0-94.0) H D 11/01/16 04:45 MCH 33.1 pg (27.0-31.0) H 11/01/16 04:45 MCHC 34.5 g/dL (33.0-37.0) 11/01/16 04:45 RDW 11.9 % (11.5-14.5) 11/01/16 04:45 Plt Count 273 K/uL (130-400) 11/01/16 04:45 MPV 7.6 fl (7.2-11.7) 11/01/16 00:28 Neut % (Auto) 50.9 % (50.0-75.0) 11/01/16 00:28 Lymph % (Auto) 38.3 % (20.0-40.0) 11/01/16 00:28 Stokes % (Auto) 9.1 % (0.0-10.0) 11/01/16 00:28 Eos % (Auto) 0.8 % (0.0-4.0) 11/01/16 00:28 Baso % (Auto) 0.9 % (0.0-2.0) 11/01/16 00:28 Neut # 1.9 K/uL (1.8-7.0) 11/01/16 00:28 Lymph # 1.4 K/uL (1.0-4.3) 11/01/16 00:28 Stokes # 0.3 K/uL (0.0-0.8) 11/01/16 00:28 Eos # 0.0 K/uL (0.0-0.7) 11/01/16 00:28 Baso # 0.0 K/uL (0.0-0.2) 11/01/16 00:28 pO2 28 mm/Hg (30-55) L 11/01/16 00:32 VBG pH 7.36 (7.32-7.43) 11/01/16 00:32 VBG pCO2 49 mmHg (40-60) 11/01/16 00:32 VBG HCO3 24.8 mmol/L 11/01/16 00:32 VBG Total CO2 29.2 mmol/L (22-28) H 11/01/16 00:32 VBG O2 Sat (Calc) 64.1 % (40-65) 11/01/16 00:32 VBG Base Excess 1.5 mmol/L (0.0-2.0) 11/01/16 00:32 VBG Potassium 4.2 mmol/L (3.6-5.2) 11/01/16 00:32 Sodium 128.0 mmol/L (132-148) L 11/01/16 00:32 Chloride 87.0 mmol/L (98-107) L 11/01/16 00:32 Glucose 643 mg/dL (75-110) H* 11/01/16 00:32 Lactate 1.1 mmol/L (0.7-2.1) 11/01/16 00:32 FiO2 21.0 % 11/01/16 00:32 Crit Value Called To Pilar peters rn 11/01/16 00:32 Crit Value Called By Franky 11/01/16 00:32 Crit Value Read Back Y 11/01/16 00:32 Blood Gas Notified Time 36 11/01/16 00:32 Sodium 135 mmol/l (132-148) 11/02/16 05:00 Potassium 3.8 MMOL/L (3.6-5.0) 11/02/16 05:00 Chloride 103 mmol/L (98-107) 11/02/16 05:00 Carbon Dioxide 26 mmol/L (22-30) 11/02/16 05:00 Anion Gap 10 (10-20) 11/02/16 05:00 BUN 10 mg/dl (9-20) 11/02/16 05:00 Creatinine 0.3 mg/dL (0.8-1.5) L 11/02/16 05:00 Est GFR ( Amer) > 60 11/02/16 05:00 Est GFR (Non-Af Amer) > 60 11/02/16 05:00 POC Glucose (mg/dL) 120 mg/dL (65-110) H 11/03/16 05:32 Random Glucose 275 mg/dL (75-110) H 11/02/16 05:00 Calcium 8.8 mg/dL (8.4-10.2) 11/02/16 05:00 Total Bilirubin 0.6 mg/dl (0.2-1.3) 11/01/16 00:20 AST 36 U/L (17-59) 11/01/16 00:20 ALT 46 U/L (21-72) 11/01/16 00:20 Alkaline Phosphatase 202 U/L (38-126) H D 11/01/16 00:20 Total Protein 7.7 G/DL (6.3-8.2) 11/01/16 00:20 Albumin 4.4 g/dL (3.5-5.0) 11/01/16 00:20 Globulin 3.3 gm/dL (2.2-3.9) 11/01/16 00:20 Albumin/Globulin Ratio 1.4 (1.0-2.1) 11/01/16 00:20 Lipase 384 U/L (23-300) H 11/01/16 00:20 Venous Blood Potassium 4.2 mmol/L (3.6-5.2) 11/01/16 00:32 Urine Color Straw (YELLOW) 11/01/16 01:00 Urine Clarity Clear (Clear) 11/01/16 01:00 Urine pH 6.0 (5.0-8.0) 11/01/16 01:00 Ur Specific [place] 1.028 (1.003-1.030) 11/01/16 01:00 Urine Protein Negative mg/dL (NEGATIVE) 11/01/16 01:00 Urine Glucose (UA) >=500 mg/dL (Normal) 11/01/16 01:00 Urine Ketones 20 mg/dL (NEGATIVE) 11/01/16 01:00 Urine Blood Negative (NEGATIVE) 11/01/16 01:00 Urine Nitrate Negative (NEGATIVE) 11/01/16 01:00 Urine Bilirubin Negative (NEGATIVE) 11/01/16 01:00 Urine Urobilinogen 0.2-1.0 mg/dL (0.2-1.0) 11/01/16 01:00 Ur Leukocyte Esterase Neg Nesha/uL (Negative) 11/01/16 01:00 Urine RBC (Auto) 1 /hpf (0-3) 11/01/16 01:00 Urine Opiates Screen Negative (NEGATIVE) 11/01/16 01:00 Urine Methadone Screen Negative (NEGATIVE) 11/01/16 01:00 Ur Barbiturates Screen Negative (NEGATIVE) 11/01/16 01:00 Ur Phencyclidine Scrn Negative (NEGATIVE) 11/01/16 01:00 Ur Amphetamines Screen Negative (NEGATIVE) 11/01/16 01:00 U Benzodiazepines Scrn Negative (NEGATIVE) 11/01/16 01:00 U Oth Cocaine Metabols Negative (NEGATIVE) 11/01/16 01:00 U Cannabinoids Screen Negative (NEGATIVE) 11/01/16 01:00 Serum Ketones Trace (NEGATIVE) 11/01/16 00:20 - Hospital Course Hospital Course: 51 y/o male with recent diagnosIs of DM2 for which he was admitted here just over a week ago. He was discharged on 10/25 with prescriptions for diabetes medications, and has been unable to fill them because of cost. Comes in now again with polyuria, polydiPsia, and blurry vision. No other symptoms. No f/c. 1.Uncontrolled diabetes mellitus II pt not compliant with his meds and diet Hgn A1c 18 Started Metformin 850 mg po BID , Glucotrol 10 mg po BId Continue diabetic diet, accuchecks, insulin Diabetic education Endo - Dr wiseman consulted and pt was started on NPH insulin and regular insulin TID IVF hydration Pt noncompliant with his diet - was caught several times eating high sugar content food brought in from home Educated pt regarding DM a, complications discussed Pt and were taught how to check blood sugar and use Insulin 2. DVT prophylaxis Lovenox Discharge Exam - Head Exam Head Exam: ATRAUMATIC, NORMAL INSPECTION, NORMOCEPHALIC - Eye Exam Eye Exam: EOMI, Normal appearance Pupil Exam: NORMAL ACCOMODATION - ENT Exam ENT Exam: Mucous Membranes Moist, Normal External Ear Exam - Neck Exam Neck exam: Full Rom - Respiratory Exam Respiratory Exam: NORMAL BREATHING PATTERN. absent: Respiratory Distress - Cardiovascular Exam Cardiovascular Exam: REGULAR RHYTHM, +S1, +S2 - GI/Abdominal Exam GI & Abdominal Exam: Normal Bowel Sounds, Soft. absent: Tenderness - Extremities Exam Extremities exam: full ROM, normal capillary refill, pedal pulses present Additional comments: no calf tenderness - Back Exam Back exam: FULL ROM. absent: CVA tenderness (L), CVA tenderness (R) - Neurological Exam Neurological exam: Alert, CN II-XII Intact, Oriented x3 - Psychiatric Exam Psychiatric exam: Normal Affect, Normal Mood - Skin Skin Exam: Dry, Normal Color, Warm Discharge Plan - Discharge Medications Prescriptions: Alcohol Antiseptic Pads [Alcohol Pads] 1 each TP DAILY #1 pkg GlipiZIDE [Glucotrol] 10 mg PO BIDAC #60 tab Insulin Human NPH [Humulin N] 20 units SC HS 30 Days metFORMIN [glucOPHAGE] 850 mg PO BIDWM #60 tab Syring-Needl,Disp,Insul,0.3 ml [Insulin Syringe] 1 each SQ DAILY #100 disp.syrin - Follow Up Plan Condition: GOOD Disposition: HOME/ ROUTINE Instructions: Meal Planning with Diabetes Exchanges (DC), Managing Diabetes During Sick Days (DC), Diabetic Hyperglycemia (DC) Additional Instructions: ff up [facility] Clinic in 1 wk Referrals: [facility] [place] [Outside]
[2016-11-03 12:31] VITALS: BP 106/69; RESP 20; TEMP 98.1; O2SAT 94
--- NOTE | 2016-11-03 20:27 | PN ---
DATE: 11/03/2016 LOCATION: Room 417. This is a 51-year-old male with recent uncontrolled type 2 insulin-requiring diabetes, presenting her e with marked hyperglycemic accelerations as he was only taking the oral hypoglycemic therapy as give n. He clearly insulin requiring at this time with expected hospital readmissions if goes home once again on oral hypoglycemic therapy. His glucose values today have ranged from 120-424 and 298 m g/dL. His latest chemistry showed a BUN of 10, sodium 135, potassium 3.8, chloride 103, CO2 of 26, g lucose 275 and creatinine 0.3. So at this time, would recommend at least a basal insulin given as NPH 20 units at bedtime with the c ombination of his oral hypoglycemic drug therapy with glipizide given as 10 mg b.i.d. and metformin 8 50 mg b.i.d. If hyperglycemic levels supervene with mealtimes, then would recommend the addition of either regular insulin before each meal and/or premixed insulin regimen given twice daily as ordered. Would recommend that he be followed by his outpatient medical doctor for ongoing diabetic managemen t. Shahnaz Thayer MD cc: [id number] TT: 11/03/2016 20:26:06 Confirmation # [id number] Dictation # [id number]
== END 2016-11-03 15:02 | disposition home or self-care (01) | DRG 294 ==
LOC: H.ER 23:45 → H.ERHOLD 11-01 02:11 → H.TEL 11-01 02:53 → UNDODISOB 11-01 14:22 → OBSVTOIN 11-02 19:21
PROVIDERS: ADMIT Internal Medicine; ATTEND Internal Medicine
DX: E11.65 Type 2 diabetes mellitus with hyperglycemia (principal); E86.0 Dehydration; I10 Essential (primary) hypertension; E78.5 Hyperlipidemia, unspecified; Z91.14 Patient's other noncompliance with medication regimen; Z91.11 Patient's noncompliance with dietary regimen; Z79.4 Long term (current) use of insulin; Z79.84 Long term (current) use of oral hypoglycemic drugs; F17.210 Nicotine dependence, cigarettes, uncomplicated

== ENCOUNTER 2016-12-05 16:22 | Inpatient (IN) | payer SELFPAY ==
[2016-12-05 16:23] VITALS: BMI 21.2
[2016-12-05] MEDS ORDERED: Sodium Chloride 0.9% 1,000 ML IV STA ×2 (16:49→18:28)
--- NOTE | 2016-12-05 16:55 | ED PDOC ---
Hyperglycemia/Hypoglycemia Time Seen by Provider: 12/05/16 16:41 Chief Complaint (Nursing): High Blood Sugar Chief Complaint (Provider): high blood sugar History Per: Patient History/Exam Limitations: no limitations Onset/Duration Of Symptoms: Days (2) Current Symptoms Are (Timing): Still Present : The patient does not have any of the infectious symptoms listed except for those marked. Additional Complaint(s): Pt. has not been taking his blood sugar meds for 2 months. Has weakness, dizziness for 2 weeks. Sugar has been high for 2 weeks. Drinking water more frequently. No dysuria or increased urination. Has off and on chest pain right. No dyspnea. No numbness, tingles. No leg pain. Is blind for some time now. Past Medical History Reviewed: Nursing Documentation, Vital Signs Vital Signs: Last Vital Signs Temp 98.8 F 12/05/16 16:28 Pulse 82 12/05/16 16:28 Resp 18 12/05/16 16:28 BP 119/81 12/05/16 16:28 Pulse Ox 98 12/05/16 16:28 - Medical History PMH: Diabetes Denies: HIV, Chronic Kidney Disease Other PMH: blind both eyes - Surgical History Surgical History: No Surg Hx - Family History Family History: States: Unknown Family Hx - Living Arrangements Living Arrangements: With Family - Social History Current smoker - smoking cessation education provided: No Alcohol: None Drugs: Denies - Immunization History Hx Tetanus Toxoid Vaccination: No Hx Influenza Vaccination: No Hx Pneumococcal Vaccination: No - Home Medications Home Medications: Ambulatory Orders Medication Instructions Recorded GlipiZIDE [Glucotrol] 10 mg PO BIDAC #60 tab 11/01/16 metFORMIN [glucOPHAGE] 850 mg PO BIDWM #60 tab 11/01/16 Insulin Human NPH [Humulin N] 20 units SC HS 30 Days 11/03/16 - Allergies Allergies/Adverse Reactions: Allergies Allergy/AdvReac Type Severity Reaction Status Date / Time No Known Allergies Allergy Verified 10/23/16 11:00 Review of Systems ROS Statement: Except As Marked, All Systems Reviewed And Found Negative Constitutional: Positive for: Weakness Cardiovascular: Positive for: Chest Pain, Light Headedness Neurological: Positive for: Weakness, Dizziness Physical Exam - Reviewed Nursing Documentation Reviewed: Yes Vital Signs Reviewed: Yes - Physical Exam Appears: Positive for: Uncomfortable Head Exam: Positive for: ATRAUMATIC, NORMAL INSPECTION, NORMOCEPHALIC Skin: Positive for: Normal Color, Warm, DRY Eye Exam: Positive for: EOMI, PERRL, Other (cataracts b/l) ENT: Positive for: Normal ENT Inspection Neck: Positive for: Normal, Painless ROM, Supple Cardiovascular/Chest: Positive for: Regular Rate, Rhythm. Negative for: Edema Respiratory: Positive for: CNT, Normal Breath Sounds Gastrointestinal/Abdominal: Positive for: Normal Exam, Bowel Sounds, Soft. Negative for: Tenderness Back: Positive for: Normal Inspection. Negative for: L CVA Tenderness, R CVA Tenderness Extremity: Positive for: Normal ROM. Negative for: Tenderness, Pedal Edema Neurologic/Psych: Positive for: Alert, forklift supervisor II-XII, Oriented. Negative for: Motor/Sensory Deficits - Laboratory Results Result Diagrams: 12/05/16 17:01 12/05/16 17:01 Interpretation Of Abn Labs: 617 glucose; 4.2 lactate - ECG ECG: Positive for: Interpreted By Me, Viewed By Me ECG Rhythm: Positive for: Normal QRS, Normal ST Segment, Sinus Rhythm O2 Sat by Pulse Oximetry: 98 Pulse Ox Interpretation: Normal - Radiology X-Ray: Read By Radiologist X-Ray Interpretation: No Acute Disease - Progress ED Course And Treament: 1843: Stable. Spoke with Dr. Adair. Will admit tele. - Critical Care Total Time (In Min): 30 Documented Critical Care: Time excludes all time spent performint seperately billable procedures Disposition - Clinical Impression Clinical Impression: Hyperglycemia, Dehydration - Disposition Disposition Time: 18:43 Condition: FAIR - Pt Status Changed To: Hospital Disposition Of: Inpatient - Admit Certification Admit to Inpatient:: After my assessment, the patient will require hospitalization for at least two midnights. This is because of the severity of symptoms shown, intensity of services needed, and/or the medical risk in this patient being treated as an outpatient. - POA Present On Arrival: Poor Glycemic Control
[2016-12-05 17:09] LABS: ABG ALLEN TEST YES; ARTERIAL BLOOD GAS HCO3 23.5 mmol/L (21-28); ARTERIAL BLOOD GAS O2 SAT 96.8 % (95-98); ARTERIAL BLOOD GAS PCO2 39 mm/Hg (35-45); ARTERIAL BLOOD GAS PH 7.38 (7.35-7.45); ARTERIAL BLOOD GAS PO2 83 mm/Hg (80-100); ARTERIAL BLOOD GAS TCO2 24.3 mmol/L (22-28)
[2016-12-05 17:10] LABS: BASO # 0.1 K/uL (0.0-0.2); BASO % 1.2 % (0.0-2.0); EOS % 0.3 % (0.0-4.0); HEMOGLOBIN 13.5 g/dL (12.0-18.0); LYMPH # 1.7 K/uL (1.0-4.3); LYMPH % 33.5 % (20.0-40.0); MEAN CELL VOLUME 96.1 fl (80.0-94.0); MEAN CORPUSCULAR HEMOGLOBIN 31.7 pg (27.0-31.0); MEAN CORPUSCULAR HGB CONC 32.9 g/dL (33.0-37.0); MEAN PLATELET VOLUME 7.6 fl (7.2-11.7); MONO # 0.4 K/uL (0.0-0.8); MONO % 7.5 % (0.0-10.0); NEUT # 2.9 K/uL (1.8-7.0); NEUT % 57.5 % (50.0-75.0); NRBC % 0.1 % (0.0-0.0); RBC 4.25 Mil/uL (4.40-5.90); RED CELL DISTRIBUTION WIDTH 12.2 % (11.5-14.5); WHITE BLOOD COUNT 5.1 K/uL (4.8-10.8)
[2016-12-05 17:33] LABS: ALB/GLOB RATIO 1.3 (1.0-2.1); ALBUMIN 4.3 g/dL (3.5-5.0); ALT/SGPT 46 U/L (21-72); AST/SGOT 30 U/L (17-59); BLOOD UREA NITROGEN 12 mg/dl (9-20); GFR AFRICAN-AMERICAN > 60; GFR NON-AFRICAN AMERICAN > 60
--- NOTE | 2016-12-05 17:48 | RAD ---
HISTORY: elevated sugar COMPARISON: 11/01/2016 FINDINGS: LUNGS: No active pulmonary disease. PLEURA: No significant pleural effusion identified, no pneumothorax apparent. CARDIOVASCULAR: No radiographic findings to suggest acute or significant cardiovascular disease. OSSEOUS STRUCTURES: No significant abnormalities. VISUALIZED UPPER ABDOMEN: Normal. OTHER FINDINGS: None. IMPRESSION: No active disease. No significant interval change compared to the prior examination(s).
[2016-12-05 18:07] LABS: URINE BILIRUBIN NEGATIVE (NEGATIVE); URINE BLOOD NEGATIVE (NEGATIVE); URINE CLARITY CLEAR (Clear); URINE COLOR STRAW (YELLOW); URINE GLUCOSE (UA) >=500 mg/dL (Normal); URINE LEUKOCYTE ESTERASE NEG Leu/uL (Negative); URINE NITRATE NEGATIVE (NEGATIVE); URINE PROTEIN NEGATIVE (NEGATIVE); URINE UROBILINOGEN 0.2-1.0 mg/dL (0.2-1.0)
[2016-12-05] MEDS ORDERED: Insulin Regular 100 units/ml IV STA (18:25)
[2016-12-05] MEDS ORDERED: Insulin Regular 100 units/ml ONE (18:28)
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
[2016-12-05] MEDS ORDERED: Insulin NPH Human 100 Units/ml Inj SC SCH (22:00)
[2016-12-05] MEDS: Sodium Chloride 0.9% 1,000 ML IV SCH (22:59)
[2016-12-06] MEDS: Sodium Chloride 0.9% 1,000 ML IV SCH (06:25)
[2016-12-06] MEDS ORDERED: Pneumococcal 23-Valent Vaccine IM ONE (06:30)
[2016-12-06 07:26] LABS: BLOOD UREA NITROGEN 12 mg/dl (9-20); CALCIUM 8.9 mg/dL (8.4-10.2); GFR AFRICAN-AMERICAN > 60; GFR NON-AFRICAN AMERICAN > 60
[2016-12-06] MEDS ORDERED: Insulin Lispro Mix 75/25 100 units/ml (HumaLog) 10ml SC SCH ×2 (07:30→16:30)
[2016-12-06] MEDS ORDERED: Insulin Lispro (humaLOG) 100 Units/ml Inj SC SCH ×2 (07:30)
--- NOTE | 2016-12-06 07:30 | CARD ---
APPROVED REPORT EKG Measurement Heart [id number] <Conclusion> Normal sinus rhythm Normal ECG
[2016-12-06 07:48] LABS: BASO % 0.7 % (0.0-2.0); EOS % 0.8 % (0.0-4.0); HEMOGLOBIN 13.1 g/dL (12.0-18.0); LYMPH # 1.7 K/uL (1.0-4.3); LYMPH % 29.2 % (20.0-40.0); MEAN CELL VOLUME 95.3 fl (80.0-94.0); MEAN CORPUSCULAR HGB CONC 33.6 g/dL (33.0-37.0); MEAN PLATELET VOLUME 7.5 fl (7.2-11.7); MONO # 0.4 K/uL (0.0-0.8); MONO % 7.6 % (0.0-10.0); NEUT # 3.6 K/uL (1.8-7.0); NEUT % 61.7 % (50.0-75.0); NRBC % 0.1 % (0.0-0.0); RBC 4.09 Mil/uL (4.40-5.90); RED CELL DISTRIBUTION WIDTH 12.1 % (11.5-14.5); WHITE BLOOD COUNT 5.8 K/uL (4.8-10.8)
[2016-12-06] MEDS ORDERED: Enoxaparin 40 mg Syringe SC SCH (09:00)
--- NOTE | 2016-12-06 09:54 | CP.PCM.PN ---
Objective - Vital Signs/Intake and Output Vital Signs (last 24 hours): Temp Pulse Resp BP Pulse Ox 98.1 F 69 18 96/65 L 96 12/06/16 08:20 12/06/16 08:20 12/06/16 08:20 12/06/16 08:20 12/06/16 08:20 - Medications Medications: Current Medications Enoxaparin Sodium (Lovenox) 40 mg SC DAILY PATY PRN Reason: Protocol Last Admin: 12/06/16 08:44 Dose: 40 mg Glipizide (Glucotrol) 10 mg PO BIDAC [facility] Last Admin: 12/06/16 08:42 Dose: 10 mg Sodium Chloride (Sodium Chloride 0.9%) 1,000 mls @ 125 mls/hr IV .Q8H [facility] Stop: 12/06/16 22:32 Last Admin: 12/06/16 06:25 Dose: 125 mls/hr Insulin Human Lispro (Humalog) 0 units SC ACHS [facility] PRN Reason: Protocol Insulin Human NPH (Humulin N) 12 units SC HS [facility] Insulin Lispro Protam/Lispro Human (Humalog Mix 75/25) 24 units SC ACB [facility] Last Admin: 12/06/16 08:43 Dose: 24 units Insulin Lispro Protam/Lispro Human (Humalog Mix 75/25) 18 units SC ACD PATY Metformin HCl (Glucophage) 850 mg PO BIDWM [facility] Last Admin: 12/06/16 08:42 Dose: 850 mg - Labs Labs: 12/06/16 06:35 12/06/16 06:35
--- NOTE | 2016-12-06 14:25 | CP.PCM.DIS ---
Provider - Provider Date of Admission: 12/05/16 18:42 Attending physician: Dell Adair MD Primary care physician: None Consults: endo consult Time Spent in preparation of Discharge (in minutes): 20 Hospital Course - Lab Results Lab Results: Most Recent Lab Values WBC 5.8 K/uL (4.8-10.8) 12/06/16 06:35 RBC 4.09 Mil/uL (4.40-5.90) L 12/06/16 06:35 Hgb 13.1 g/dL (12.0-18.0) 12/06/16 06:35 Hct 39.0 % (35.0-51.0) 12/06/16 06:35 MCV 95.3 fl (80.0-94.0) H 12/06/16 06:35 MCH 32.0 pg (27.0-31.0) H 12/06/16 06:35 MCHC 33.6 g/dL (33.0-37.0) 12/06/16 06:35 RDW 12.1 % (11.5-14.5) 12/06/16 06:35 Plt Count 301 K/uL (130-400) 12/06/16 06:35 MPV 7.5 fl (7.2-11.7) 12/06/16 06:35 Neut % (Auto) 61.7 % (50.0-75.0) 12/06/16 06:35 Lymph % (Auto) 29.2 % (20.0-40.0) 12/06/16 06:35 [place] % (Auto) 7.6 % (0.0-10.0) 12/06/16 06:35 Eos % (Auto) 0.8 % (0.0-4.0) 12/06/16 06:35 Baso % (Auto) 0.7 % (0.0-2.0) 12/06/16 06:35 Neut # 3.6 K/uL (1.8-7.0) 12/06/16 06:35 Lymph # 1.7 K/uL (1.0-4.3) 12/06/16 06:35 [place] # 0.4 K/uL (0.0-0.8) 12/06/16 06:35 Eos # 0.0 K/uL (0.0-0.7) 12/06/16 06:35 Baso # 0.0 K/uL (0.0-0.2) 12/06/16 06:35 pCO2 39 mm/Hg (35-45) 12/05/16 17:05 pO2 83 mm/Hg (80-100) 12/05/16 17:05 HCO3 23.5 mmol/L (21-28) 12/05/16 17:05 ABG pH 7.38 (7.35-7.45) 12/05/16 17:05 ABG Total CO2 24.3 mmol/L (22-28) 12/05/16 17:05 ABG O2 Saturation 96.8 % (95-98) 12/05/16 17:05 ABG Base Excess -1.8 mmol/L (-2.0-3.0) 12/05/16 17:05 Ernie Test Yes 12/05/16 17:05 ABG Potassium 4.1 mmol/L (3.6-5.2) 12/05/16 17:05 A-a O2 Difference 18.0 mm/Hg 12/05/16 17:05 Sodium 131.0 mmol/L (132-148) L 12/05/16 17:05 Chloride 98.0 mmol/L (98-107) 12/05/16 17:05 Glucose 627 mg/dL (75-110) H* 12/05/16 17:05 Lactate 4.2 mmol/L (0.7-2.1) H* 12/05/16 17:05 FiO2 21.0 % 12/05/16 17:05 Crit Value Called To Effie shepherd rn 12/05/16 17:05 Crit Value Called By [id number] 12/05/16 17:05 Crit Value Read Back Y 12/05/16 17:05 Blood Gas Notified Time 1709 12/05/16 17:05 Sodium 140 mmol/l (132-148) 12/06/16 06:35 Potassium 3.6 MMOL/L (3.6-5.0) 12/06/16 06:35 Chloride 103 mmol/L (98-107) 12/06/16 06:35 Carbon Dioxide 28 mmol/L (22-30) 12/06/16 06:35 Anion Gap 12 (10-20) 12/06/16 06:35 BUN 12 mg/dl (9-20) 12/06/16 06:35 Creatinine 0.5 mg/dL (0.8-1.5) L 12/06/16 06:35 Est GFR ( Amer) > 60 12/06/16 06:35 Est GFR (Non-Af Amer) > 60 12/06/16 06:35 POC Glucose (mg/dL) 267 mg/dL (65-110) H 12/06/16 10:58 Random Glucose 247 mg/dL (75-110) H 12/06/16 06:35 Hemoglobin A1c 17.4 % (4.2-6.5) H 12/06/16 04:00 Calcium 8.9 mg/dL (8.4-10.2) 12/06/16 06:35 Total Bilirubin 0.6 mg/dl (0.2-1.3) 12/05/16 17:01 AST 30 U/L (17-59) 12/05/16 17:01 ALT 46 U/L (21-72) 12/05/16 17:01 Alkaline Phosphatase 107 U/L (38-126) 12/05/16 17:01 Troponin I < 0.0120 ng/mL (0.00-0.120) 12/05/16 17:01 Total Protein 7.5 G/DL (6.3-8.2) 12/05/16 17:01 Albumin 4.3 g/dL (3.5-5.0) 12/05/16 17:01 Globulin 3.3 gm/dL (2.2-3.9) 12/05/16 17:01 Albumin/Globulin Ratio 1.3 (1.0-2.1) 12/05/16 17:01 Arterial Blood Potassium 4.1 mmol/L (3.6-5.2) 12/05/16 17:05 Urine Color Straw (YELLOW) 12/05/16 17:00 Urine Clarity Clear (Clear) 12/05/16 17:00 Urine pH 7.0 (5.0-8.0) 12/05/16 17:00 Ur Specific [place] 1.024 (1.003-1.030) 12/05/16 17:00 Urine Protein Negative mg/dL (NEGATIVE) 12/05/16 17:00 Urine Glucose (UA) >=500 mg/dL (Normal) 12/05/16 17:00 Urine Ketones Negative mg/dL (NEGATIVE) 12/05/16 17:00 Urine Blood Negative (NEGATIVE) 12/05/16 17:00 Urine Nitrate Negative (NEGATIVE) 12/05/16 17:00 Urine Bilirubin Negative (NEGATIVE) 12/05/16 17:00 Urine Urobilinogen 0.2-1.0 mg/dL (0.2-1.0) 12/05/16 17:00 Ur Leukocyte Esterase Neg Nesha/uL (Negative) 12/05/16 17:00 Urine RBC (Auto) < 1 /hpf (0-3) 12/05/16 17:00 Urine Microscopic WBC < 1 /hpf (0-5) 12/05/16 17:00 - Hospital Course Hospital Course: 51 yo male with history of DM2 not complinat with medications because of lack of insurance , discharged last month after getting admitted for uncontrolled hyperglycemia came in complaining of generalized weakness and dizziness since a weeks ago. Claimed he has no insurance and has ran out of insulin since last week.His accucheck found to be > 500 Patient admitted for uncontrolled DM , Started ion IVF, insulin, metformin a, glucotrol. Endocrinology consulted Hgb A1c found to be 17. Counselled patient on compliance with his medications and need for follow up with clinic for family health or diabetic clinic. His Accuchecks are 247 , 267 with no electrolyte abnormalities Will discharge patient home. He has all prescriptions and girlfriend already filled them . criminal justice social worker provided discount cards for medications His accuchecks 1. Uncontrolled Diabetes HGb A1c 17 Counselled on complinace with medications and diet Continue NPH insulin, Metformin , glucotrol endocrinology consult with Dr Jeovany galdamez social media strategist provided discount cards for medications Discharge Exam - Head Exam Head Exam: ATRAUMATIC, NORMOCEPHALIC - Eye Exam Eye Exam: PERRL - ENT Exam ENT Exam: Mucous Membranes Moist, Normal Exam - Neck Exam Neck exam: Normal Inspection - Respiratory Exam Respiratory Exam: Clear to PA & Lateral. absent: Accessory Muscle Use, Respiratory Distress - Cardiovascular Exam Cardiovascular Exam: REGULAR RHYTHM. absent: JVD - GI/Abdominal Exam GI & Abdominal Exam: Normal Bowel Sounds, Soft. absent: Guarding, Rebound, Tenderness - Rectal Exam Rectal Exam: Deferred - Extremities Exam Extremities exam: normal capillary refill, normal inspection, pedal pulses present - Back Exam Back exam: NORMAL INSPECTION - Neurological Exam Neurological exam: Alert, CN II-XII Intact, Oriented x3, Reflexes Normal - Psychiatric Exam Psychiatric exam: Normal Affect - Skin Skin Exam: Normal Color, Warm Discharge Plan - Follow Up Plan Condition: STABLE Disposition: HOME/ ROUTINE Patient education suggested?: Yes Instructions: Diabetes Mellitus Type 2 in Adults (DC) Referrals: [facility] [Outside]
--- NOTE | 2016-12-06 15:32 | CARD ---
APPROVED REPORT EKG Measurement Heart [id number] <Conclusion> Normal sinus rhythm Normal ECG
[2016-12-06 15:35] VITALS: BP 107/62; PULSE 84; RESP 20; TEMP 97.4; O2SAT 99
[2016-12-06] MEDS ORDERED: Insulin NPH Human 100 Units/ml Inj SC SCH (22:00)
--- NOTE | 2016-12-14 12:12 | PN ---
This is Dr. Shahnaz Thayer dictating an endocrinology follow up for patient Lauri García at [facility]. Room [address] Shahnaz Thayer dictating an endocrinology follow up for patient Lauri García as mentioned. This is a 51 yo male with recent uncontrolled, type 2, insulin requiring diabetes presenting here with hyperglycemia accelerations related to drug omission because of financial constraints. His latest chemistries showed: * BUN 12 * Sodium 140 * Potassium 3.6 * Chloride 103 * CO2 28 * Glucose 247 * Creatinine 0.5 His glucose levels have raised from 267 to 297 mg/dL. His hemoglobin AU1 seems extremely elevated at 17.4%, clearly indicative of suboptimal metabolic control of his diabetic condition,even prior to this admission. At this time, we will continue the same basal insulin order of NPH humulin at 20 units SubQ at bedtime daily as ordered. We will also the continue the premixed insulin regimen given humulin 730 at 24 units ac breakfast and 16 units ac at dinner as ordered. Will continue the oral hypoglycemic therapy given in combination with metformin at 850 mg BID with meals and glipizide at 10 mg BID before meals as ordered. Will titrate (158) dose indicated to optimize metabolic control. Will follow. Shahnaz Thayer MD [facility]
== END 2016-12-06 16:00 | disposition home or self-care (01) | DRG 639 ==
LOC: H.ER 16:22 → H.ERHOLD 18:42 → H.TEL 21:20
DX: E11.65 Type 2 diabetes mellitus with hyperglycemia (principal); F17.200 Nicotine dependence, unspecified, uncomplicated; H54.8 Legal blindness, as defined in USA; R53.1 Weakness; Z91.14 Patient's other noncompliance with medication regimen; Z79.4 Long term (current) use of insulin; Z79.84 Long term (current) use of oral hypoglycemic drugs

== ENCOUNTER 2018-03-14 22:25 | Emergency (ER) | payer OTHER ==
[2018-03-14 22:26] VITALS: BMI 21.2
--- NOTE | 2018-03-14 22:51 | ED PDOC ---
Hyperglycemia/Hypoglycemia Time Seen by Provider: 03/14/18 22:34 Chief Complaint (Nursing): High Blood Sugar Chief Complaint (Provider): High blood sugar History Per: Patient History/Exam Limitations: no limitations Onset/Duration Of Symptoms: Days (2 weeks) : The patient does not have any of the infectious symptoms listed except for those marked. Additional Complaint(s): Pt. with high blood sugar levels today at 430-500 range. 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 Has body aches, but no nausea, vomit, diarrhea, weakness, dizziness, abd pain, urinary issues. No headaches. No dizziness. Not taking meds for diabetes for 2 weeks as he ran out. Goes to a clinic in [place]. Past Medical History Vital Signs: Last Vital Signs Temp 98.4 F 03/14/18 22:29 Pulse 78 03/14/18 22:29 Resp 18 03/14/18 22:29 BP 137/86 03/14/18 22:29 Pulse Ox 96 03/14/18 22:29 - Medical History PMH: Diabetes, HTN, Hypercholesterolemia Denies: HIV, Chronic Kidney Disease - Surgical History Surgical History: No Surg Hx - Family History Family History: States: Unknown Family Hx - Living Arrangements Living Arrangements: With Family - Immunization History Hx Tetanus Toxoid Vaccination: No Hx Influenza Vaccination: No Hx Pneumococcal Vaccination: No - Home Medications Home Medications: Ambulatory Orders Medication Instructions Recorded GlipiZIDE [Glucotrol] 10 mg PO BIDAC #60 tab 11/01/16 metFORMIN [glucOPHAGE] 850 mg PO BIDWM #60 tab 11/01/16 Insulin Human NPH [Humulin N] 20 units SC HS 30 Days vial 11/03/16 - Allergies Allergies/Adverse Reactions: Allergies Allergy/AdvReac Type Severity Reaction Status Date / Time No Known Allergies Allergy Verified 10/23/16 11:00 Review of Systems ROS Statement: Except As Marked, All Systems Reviewed And Found Negative Musculoskeletal: Positive for: Other (body aches) Physical Exam - Reviewed Nursing Documentation Reviewed: Yes Vital Signs Reviewed: Yes - Physical Exam Appears: Positive for: Non-toxic, No Acute Distress Head Exam: Positive for: ATRAUMATIC, NORMAL INSPECTION, NORMOCEPHALIC Skin: Positive for: Normal Color, Warm, DRY Eye Exam: Positive for: EOMI, Normal appearance, PERRL ENT: Positive for: Normal ENT Inspection Neck: Positive for: Normal, Painless ROM Cardiovascular/Chest: Positive for: Regular Rate, Rhythm Respiratory: Positive for: CNT, Normal Breath Sounds Gastrointestinal/Abdominal: Positive for: Normal Exam, Soft. Negative for: Tenderness Back: Positive for: Normal Inspection. Negative for: L CVA Tenderness, R CVA Tenderness Extremity: Positive for: Normal ROM. Negative for: Tenderness, Pedal Edema Neurologic/Psych: Positive for: Alert, it project manager II-XII, Oriented. Negative for: Motor/Sensory Deficits, Aphasia, Facial Droop - Laboratory Results Result Diagrams: 03/14/18 23:20 - ECG O2 Sat by Pulse Oximetry: 96 Pulse Ox Interpretation: Normal - Progress ED Course And Treament: 0004: Stable. Alert. Dr. Solis to fu on labs. Disposition - Clinical Impression Clinical Impression: Uncontrolled type 2 diabetes mellitus with hyperglycemia - Patient ED Disposition Is Patient to be Admitted: Transfer of Care - Disposition Disposition Time: 00:05 Condition: FAIR Patient Signed Over To: Yohannes Solis
[2018-03-14] MEDS ORDERED: Sodium Chloride 0.9% 1,000 ML IV STA (23:06)
[2018-03-15 00:01] LABS: BASO % 1.2 % (0.0-2.0); EOS % 1.1 % (0.0-4.0); HEMOGLOBIN 14.5 g/dL (12.0-18.0); LYMPH % 49.8 % (20.0-40.0); MEAN CELL VOLUME 89.6 fl (80.0-94.0); MEAN CORPUSCULAR HEMOGLOBIN 29.9 pg (27.0-31.0); MEAN CORPUSCULAR HGB CONC 33.4 g/dL (33.0-37.0); MEAN PLATELET VOLUME 8.2 fl (7.2-11.7); MONO # 0.4 K/uL (0.0-0.8); MONO % 10.8 % (0.0-10.0); NEUT # 1.5 K/uL (1.8-7.0); NEUT % 37.1 % (50.0-75.0); NRBC % 0.1 % (0.0-0.0); RBC 4.86 Mil/uL (4.40-5.90); RED CELL DISTRIBUTION WIDTH 13.9 % (11.5-14.5); WHITE BLOOD COUNT 4.1 K/uL (4.8-10.8)
[2018-03-15 00:05] LABS: ALB/GLOB RATIO 1.2 (1.0-2.1); ALBUMIN 4.3 g/dL (3.5-5.0); ALT/SGPT 27 U/L (21-72); AST/SGOT 19 U/L (17-59); BLOOD UREA NITROGEN 9 mg/dl (9-20); CALCIUM 9.6 mg/dL (8.4-10.2); GFR NON-AFRICAN AMERICAN > 60
[2018-03-15 00:17] LABS: URINE BILIRUBIN NEGATIVE (NEGATIVE); URINE BLOOD NEGATIVE (NEGATIVE); URINE CLARITY CLEAR (Clear); URINE COLOR STRAW (YELLOW); URINE GLUCOSE (UA) >=500 mg/dL (Normal); URINE LEUKOCYTE ESTERASE NEG Leu/uL (Negative); URINE PROTEIN NEGATIVE (NEGATIVE); URINE UROBILINOGEN 0.2-1.0 mg/dL (0.2-1.0)
[2018-03-15 01:30] VITALS: BP 137/78; PULSE 76; RESP 16; TEMP 98.1; O2SAT 97
--- NOTE | 2018-03-15 09:36 | CARD ---
APPROVED REPORT Date of service: 03/14/2018 EKG Measurement Heart [id number] <Conclusion> Normal sinus rhythm Normal ECG
== END 2018-03-15 01:30 | disposition home or self-care (01) ==
LOC: H.ER 22:25
DX: E11.65 Type 2 diabetes mellitus with hyperglycemia (principal); E78.00 Pure hypercholesterolemia, unspecified; I10 Essential (primary) hypertension; Z79.84 Long term (current) use of oral hypoglycemic drugs
CPT/HCPCS: 80053; 81003; 82948; 84484; 85025; 93005; 99284; J7030

== ENCOUNTER 2018-04-17 15:04 | Emergency (ER) | payer SELFPAY ==
[2018-04-17 15:04] VITALS: BMI 21.2
[2018-04-17 15:25] VITALS: TEMP 97.6; O2SAT 98
[2018-04-17] MEDS ORDERED: Sodium Chloride 0.9% 1,000 ML IV STA (15:48)
[2018-04-17 16:05] LABS: BASO % 0.7 % (0.0-2.0); EOS % 0.9 % (0.0-4.0); HEMOGLOBIN 15.7 g/dL (12.0-18.0); LYMPH # 1.6 K/uL (1.0-4.3); MEAN CORPUSCULAR HEMOGLOBIN 29.7 pg (27.0-31.0); MEAN CORPUSCULAR HGB CONC 33.3 g/dL (33.0-37.0); MONO # 0.3 K/uL (0.0-0.8); MONO % 6.8 % (0.0-10.0); NEUT # 2.1 K/uL (1.8-7.0); NEUT % 51.6 % (50.0-75.0); NRBC % 0.3 % (0.0-0.0); RBC 5.29 Mil/uL (4.40-5.90); RED CELL DISTRIBUTION WIDTH 13.8 % (11.5-14.5); WHITE BLOOD COUNT 4.1 K/uL (4.8-10.8)
[2018-04-17 16:15] LABS: BLOOD UREA NITROGEN 9 mg/dl (9-20); CALCIUM 9.2 mg/dL (8.4-10.2); GFR NON-AFRICAN AMERICAN > 60
[2018-04-17 16:17] LABS: VENOUS BLOOD GAS BASE EXCESS 3.7 mmol/L (0.0-2.0); VENOUS BLOOD GAS PCO2 54 mmHg (40-60); VENOUS BLOOD GAS PO2 27 mm/Hg (30-55); VENOUS BLOOD PH 7.36 (7.32-7.43)
[2018-04-17 16:31] LABS: ALB/GLOB RATIO 1.2 (1.0-2.1); ALBUMIN 4.6 g/dL (3.5-5.0); ALT/SGPT 19 U/L (21-72); AST/SGOT 32 U/L (17-59)
[2018-04-17 16:40] LABS: URINE BILIRUBIN NEGATIVE (NEGATIVE); URINE BLOOD NEGATIVE (NEGATIVE); URINE CLARITY CLEAR (Clear); URINE COLOR YELLOW (YELLOW); URINE GLUCOSE (UA) >=500 mg/dL (Normal); URINE LEUKOCYTE ESTERASE NEG Leu/uL (Negative); URINE PROTEIN NEGATIVE (NEGATIVE); URINE UROBILINOGEN 0.2-1.0 mg/dL (0.2-1.0)
[2018-04-17 16:53] LABS: SQUAMOUS EPITHIAL 1 /hpf (0-5); URINE BACTERIA FEW (<OCC)
--- NOTE | 2018-04-17 18:02 | ED PDOC ---
HPI: General Adult Time Seen by Provider: 04/17/18 17:59 Chief Complaint (Nursing): High Blood Sugar Chief Complaint (Provider): HYPERGLYCEMIA History Per: Patient (53 Y/O MALE H/O DM HERE FOR PRESCRIPTION REFILL. NOTES ONGOING GENERALIZED BODYACHES AND NOT FEELING WELL. DENIES ANY ABD PAIN/VOMITING.) Past Medical History Reviewed: Historical Data, Nursing Documentation, Vital Signs Vital Signs: Last Vital Signs Temp 97.6 F 04/17/18 15:20 Pulse 84 04/17/18 15:20 Resp 20 04/17/18 15:20 BP 119/83 04/17/18 15:20 Pulse Ox 98 04/17/18 15:20 - Medical History PMH: Diabetes, HTN, Hypercholesterolemia Denies: HIV, Chronic Kidney Disease - Family History Family History: States: Unknown Family Hx - Immunization History Hx Tetanus Toxoid Vaccination: No Hx Influenza Vaccination: No Hx Pneumococcal Vaccination: No - Home Medications Home Medications: Ambulatory Orders Medication Instructions Recorded RX: GlipiZIDE [Glucotrol] 10 mg PO BIDAC #60 tab 11/01/16 RX: metFORMIN [glucOPHAGE] 850 mg PO BIDWM #60 tab 11/01/16 RX: Insulin Human NPH [Humulin N] 20 units SC HS 30 Days vial 11/03/16 Alcohol Antiseptic Pads [Alcohol 1 each TP DAILY #100 med..pad 04/17/18 Swabs] Insulin Aspart, Recombinant 1 unit SC DAILY #15 units 04/17/18 [Novolog] Insulin Detemir [Levemir] 1 units SC DAILY 50 Days #15 units 04/17/18 Pen Needle, Diabetic [Trueplus Pen 1 each MC DAILY #100 dis.needle 04/17/18 Needle] RX: Aspirin 81 mg PO DAILY #30 tab.chew 04/17/18 RX: Atorvastatin [Lipitor] 40 mg PO DAILY #30 tab 04/17/18 RX: Metformin HCl [Glucophage] 500 mg PO BID #60 tablet 04/17/18 RX: Metoprolol Tartrate 25 mg PO DAILY #30 tablet 04/17/18 - Allergies Allergies/Adverse Reactions: Allergies Allergy/AdvReac Type Severity Reaction Status Date / Time No Known Allergies Allergy Verified 04/17/18 15:19 Review of Systems ROS Statement: Except As Marked, All Systems Reviewed And Found Negative Physical Exam - Reviewed Nursing Documentation Reviewed: Yes Vital Signs Reviewed: Yes - Physical Exam Appears: Positive for: Well, Non-toxic, No Acute Distress Head Exam: Positive for: ATRAUMATIC, NORMAL INSPECTION, NORMOCEPHALIC Skin: Positive for: Normal Color, Warm, DRY Eye Exam: Positive for: EOMI, Normal appearance, PERRL ENT: Positive for: Normal ENT Inspection Neck: Positive for: Normal, Painless ROM Cardiovascular/Chest: Positive for: Regular Rate, Rhythm Respiratory: Positive for: CNT, Normal Breath Sounds Gastrointestinal/Abdominal: Positive for: Normal Exam, Soft Back: Positive for: Normal Inspection Extremity: Positive for: Normal ROM Neurologic/Psych: Positive for: Alert, Oriented - Laboratory Results Result Diagrams: 04/17/18 15:57 04/17/18 15:57 - ECG O2 Sat by Pulse Oximetry: 98 - Progress ED Course And Treament: toradol 15mg iv x 1 dose NS 1 liter 500 ml per hour Repeat BS 214 Disposition - Clinical Impression Clinical Impression: Hyperglycemia - Patient ED Disposition Is Patient to be Admitted: No - Disposition Referrals: [facility] [Outside] Disposition: Routine/Home Disposition Time: 18:00 Condition: FAIR Prescriptions: Alcohol Antiseptic Pads [Alcohol Swabs] 1 each TP DAILY #100 med..pad RX: Aspirin 81 mg PO DAILY #30 tab.chew RX: Atorvastatin [Lipitor] 40 mg PO DAILY #30 tab Insulin Aspart, Recombinant [Novolog] 1 unit SC DAILY #15 units Insulin Detemir [Levemir] 1 units SC DAILY 50 Days #15 units RX: Metformin HCl [Glucophage] 500 mg PO BID #60 tablet RX: Metoprolol Tartrate 25 mg PO DAILY #30 tablet Pen Needle, Diabetic [Trueplus Pen Needle] 1 each MC DAILY #100 dis.needle Instructions: Hyperglycemia, Adult (DC)
[2018-04-17 18:15] VITALS: BP 126/83; PULSE 73; RESP 18
== END 2018-04-17 19:10 | disposition home or self-care (01) ==
LOC: H.ER 15:04
DX: E11.65 Type 2 diabetes mellitus with hyperglycemia (principal); Z76.0 Encounter for issue of repeat prescription; Z79.4 Long term (current) use of insulin
CPT/HCPCS: 80053; 81003; 82803; 82948; 83735; 84100; 85025; 96374; 99284; J1885; J7030

== ENCOUNTER 2018-08-11 20:32 | Observation (INO) | payer MEDICAID, OTHER ==
[2018-08-11 20:32] VITALS: BMI 21.2
[2018-08-11] MEDS ORDERED: Sodium Chloride 0.9% 1,000 ML IV STA ×3 (20:52→23:25)
[2018-08-11] MEDS ORDERED: Insulin Regular 100 units/ml IV ONE ×2 (21:19→21:25)
[2018-08-11 21:36] LABS: BASO % 0.9 % (0.0-2.0); EOS % 0.8 % (0.0-4.0); HEMOGLOBIN 13.8 g/dL (12.0-18.0); LYMPH # 1.2 K/uL (1.0-4.3); MEAN CELL VOLUME 91.8 fl (80.0-94.0); MEAN CORPUSCULAR HEMOGLOBIN 30.2 pg (27.0-31.0); MEAN CORPUSCULAR HGB CONC 32.9 g/dL (33.0-37.0); MEAN PLATELET VOLUME 7.7 fl (7.2-11.7); MONO # 0.4 K/uL (0.0-0.8); NEUT % 55.3 % (50.0-75.0); NRBC % 0.1 % (0.0-0.0); RBC 4.58 Mil/uL (4.40-5.90); RED CELL DISTRIBUTION WIDTH 13.6 % (11.5-14.5); WHITE BLOOD COUNT 3.7 K/uL (4.8-10.8)
[2018-08-11 22:09] LABS: ALB/GLOB RATIO 1.2 (1.0-2.1); ALBUMIN 3.7 g/dL (3.5-5.0); ALT/SGPT 17 U/L (21-72); AST/SGOT 23 U/L (17-59); BLOOD UREA NITROGEN 9 mg/dl (9-20); CALCIUM 8.3 mg/dL (8.4-10.2); GFR NON-AFRICAN AMERICAN > 60
[2018-08-11] MEDS ORDERED: Insulin Regular 100 units/ml ONE (22:26)
--- NOTE | 2018-08-11 22:26 | ED PDOC ---
HPI: General Adult Time Seen by Provider: 08/11/18 20:54 Chief Complaint (Nursing): Dizziness/Lightheaded Chief Complaint (Provider): Dizziness/Lightheaded History Per: Patient History/Exam Limitations: no limitations Onset/Duration Of Symptoms: Days Current Symptoms Are (Timing): Still Present Additional Complaint(s): 53 y/o male with a PMHx of DM and cataracts surgery presents to the ED for evaluation of weakness associated with weight loss and a dry mouth. Patient is non-complaint with insulin for the past month. Patient reports of having lost his insurance and has since been unable to take insulin. Patient notes of having lost 20 pounds associated with a dry mouth and frequent urination. Patient presented here today after noting elevated blood sugar levels in the 500s while at home. Otherwise, patient denies abdominal pain, shortness of breath and chest pain. PMD: none provided Past Medical History Reviewed: Historical Data, Nursing Documentation, Vital Signs Vital Signs: Last Vital Signs Temp 97.8 F 08/11/18 20:34 Pulse 108 H 08/11/18 20:34 Resp 18 08/11/18 20:34 BP 117/75 08/11/18 20:34 Pulse Ox 99 08/11/18 20:34 - Medical History PMH: Diabetes, HTN, Hypercholesterolemia Denies: HIV, Chronic Kidney Disease - Surgical History Other surgeries: cataracts - Family History Family History: States: Unknown Family Hx - Immunization History Hx Tetanus Toxoid Vaccination: No Hx Influenza Vaccination: No Hx Pneumococcal Vaccination: No - Home Medications Home Medications: Ambulatory Orders Medication Instructions Recorded GlipiZIDE [Glucotrol] 10 mg PO BIDAC #60 tab 11/01/16 metFORMIN [glucOPHAGE] 850 mg PO BIDWM #60 tab 11/01/16 Insulin Human NPH [Humulin N] 20 units SC HS 30 Days vial 11/03/16 Alcohol Antiseptic Pads [Alcohol 1 each TP DAILY #100 med..pad 04/17/18 Swabs] Aspirin 81 mg PO DAILY #30 tab.chew 04/17/18 Atorvastatin [Lipitor] 40 mg PO DAILY #30 tab 04/17/18 Insulin Aspart, Recombinant 1 unit SC DAILY #15 units 04/17/18 [Novolog] Insulin Detemir [Levemir] 1 units SC DAILY 50 Days #15 units 04/17/18 Metformin HCl [Glucophage] 500 mg PO BID #60 tablet 04/17/18 Metoprolol Tartrate 25 mg PO DAILY #30 tablet 04/17/18 Pen Needle, Diabetic [Trueplus Pen 1 each MC DAILY #100 dis.needle 04/17/18 Needle] - Allergies Allergies/Adverse Reactions: Allergies Allergy/AdvReac Type Severity Reaction Status Date / Time No Known Allergies Allergy Verified 04/17/18 15:19 Review of Systems ROS Statement: Except As Marked, All Systems Reviewed And Found Negative Constitutional: Positive for: Weakness, Weight loss, Other (elevated blood sugar) ENT: Positive for: Other (dry mouth ) Cardiovascular: Negative for: Chest Pain Respiratory: Negative for: Shortness of Breath Gastrointestinal: Negative for: Abdominal Pain Genitourinary Male: Positive for: Other (frequent urination) Physical Exam - Reviewed Nursing Documentation Reviewed: Yes Vital Signs Reviewed: Yes - Physical Exam Appears: Positive for: No Acute Distress Head Exam: Positive for: ATRAUMATIC, NORMOCEPHALIC Skin: Positive for: Normal Color, Warm, Dry Eye Exam: Positive for: Normal appearance, EOMI, PERRL ENT: Positive for: Other (DRY MUCOUS MEMBRANES) Neck: Positive for: Normal, Painless ROM Cardiovascular/Chest: Positive for: Regular Rate, Rhythm. Negative for: Murmur Respiratory: Positive for: Normal Breath Sounds. Negative for: Respiratory Distress Gastrointestinal/Abdominal: Positive for: Normal Exam, Soft. Negative for: Tenderness Extremity: Positive for: Normal ROM. Negative for: Deformity Neurological/Psych: Positive for: Awake, Alert, Oriented - Laboratory Results Result Diagrams: 08/11/18 21:28 08/11/18 21:28 Lab Results: Total Bilirubin 0.5 mg/dl (0.2-1.3) 08/11/18 21:28 AST 23 U/L (17-59) 08/11/18 21:28 ALT 17 U/L (21-72) L 08/11/18 21:28 Alkaline Phosphatase 139 U/L (38-126) H D 08/11/18 21:28 Total Protein 6.8 G/DL (6.3-8.2) 08/11/18 21:28 Albumin 3.7 g/dL (3.5-5.0) 08/11/18 21:28 Globulin 3.0 gm/dL (2.2-3.9) 08/11/18 21:28 Albumin/Globulin Ratio 1.2 (1.0-2.1) 08/11/18 21:28 - ECG O2 Sat by Pulse Oximetry: 99 (RA) Pulse Ox Interpretation: Normal - Critical Care Total Time (In Min): 30 Documented Critical Care: Time excludes all time spent performint seperately billable procedures Medical Decision Making Medical Decision Making: Time: 2053 Impression: 53 y/o male with Hyperglycemia in setting of non-compliance of DM Plan: -- EKG -- CMP -- ED Urine Dipstick -- CBC with Differentials -- Sodium Chloride IV 1000 mls/hr -- Sodium Chloride IV 1000 mls/hr -- Heplock Insertion -- Accucheck -- Urinalysis Time: 2124 Plan: -- HumuLIN R 10 units IV -- HumuLIN R 10 units IV Scribe Attestation: Documented by Sandy Reece, acting as a scribe Jamie Solis MD. Provider Scribe Attestation: All medical record entries made by the Scribe were at my direction and personally dictated by me. I have reviewed the chart and agree that the record accurately reflects my personal performance of the history, physical exam, medical decision making, and the department course for this patient. I have also personally directed, reviewed, and agree with the discharge instructions and disposition. Disposition - Disposition
[2018-08-11 23:23] LABS: URINE BILIRUBIN NEGATIVE (NEGATIVE); URINE BLOOD NEGATIVE (NEGATIVE); URINE CLARITY CLEAR (Clear); URINE COLOR COLORLESS (YELLOW); URINE GLUCOSE (UA) >=500 mg/dL (NEGATIVE); URINE LEUKOCYTE ESTERASE NEG Leu/uL (Negative); URINE PROTEIN NEGATIVE (NEGATIVE); URINE UROBILINOGEN 0.2-1.0 mg/dL (0.2-1.0)
[2018-08-12] MEDS ORDERED: Glucagon Recombinant 1 mg Inj IM PRN (01:03)
[2018-08-12] MEDS ORDERED: Dextrose 50% SYRINGE Inj (50 ml) IV PRN (01:03)
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
[2018-08-12] MEDS ORDERED: Sodium Chloride 0.9% 1,000 ML IV SCH (04:45)
[2018-08-12] MEDS: Insulin Lispro (humaLOG) 100 Units/ml Inj SC SCH ×3 (07:00→12:32)
[2018-08-12 07:29] LABS: HEMOGLOBIN 12.8 g/dL (12.0-18.0); MEAN CELL VOLUME 92.3 fl (80.0-94.0); MEAN CORPUSCULAR HEMOGLOBIN 30.7 pg (27.0-31.0); MEAN CORPUSCULAR HGB CONC 33.2 g/dL (33.0-37.0); RBC 4.18 Mil/uL (4.40-5.90); RED CELL DISTRIBUTION WIDTH 13.8 % (11.5-14.5); WHITE BLOOD COUNT 3.9 K/uL (4.8-10.8)
[2018-08-12 07:35] LABS: ALB/GLOB RATIO 1.1 (1.0-2.1); ALT/SGPT 19 U/L (21-72); AST/SGOT 20 U/L (17-59); BLOOD UREA NITROGEN 6 mg/dl (9-20); CALCIUM 7.6 mg/dL (8.4-10.2); GFR NON-AFRICAN AMERICAN > 60; HDL CHOLESTEROL 28 MG/DL (30-70)
[2018-08-12 07:45] LABS: LDL CHOLESTEROL 129 mg/dL (0-129)
[2018-08-12] MEDS ORDERED: Insulin Detemir 100 Units/ml Inj SC SCH (08:00)
--- NOTE | 2018-08-12 08:00 | CARD ---
APPROVED REPORT Date of service: 08/11/2018 EKG Measurement Heart [id number] OR [id number] [id number] <Conclusion> Sinus tachycardia Nonspecific ST and T wave abnormality Prolonged QT Abnormal ECG
[2018-08-12] MEDS ORDERED: Enoxaparin 40 mg Syringe SC SCH (09:00)
[2018-08-12 09:02] VITALS: BP 98/60; PULSE 82; RESP 20; TEMP 97.7; O2SAT 98
[2018-08-12] MEDS ORDERED: Potassium Chloride 20 mEq/15 ml LIQ UD PO ONE (10:30)
--- NOTE | 2018-08-12 14:45 | CP.PCM.DIS ---
Provider - Provider Date of Admission: 08/11/18 23:24 Attending physician: Miguel Robert Primary care physician: None Consults: 08/12/18 04:49 Diabetic Education Referral Routine Comment: Physician Instructions: Reason For Exam: diabetic teaching,wt.loss Time Spent in preparation of Discharge (in minutes): 30 Hospital Course - Lab Results Lab Results: Most Recent Lab Values WBC 3.9 K/uL (4.8-10.8) L 08/12/18 06:10 RBC 4.18 Mil/uL (4.40-5.90) L 08/12/18 06:10 Hgb 12.8 g/dL (12.0-18.0) 08/12/18 06:10 Hct 38.6 % (35.0-51.0) 08/12/18 06:10 MCV 92.3 fl (80.0-94.0) 08/12/18 06:10 MCH 30.7 pg (27.0-31.0) 08/12/18 06:10 MCHC 33.2 g/dL (33.0-37.0) 08/12/18 06:10 RDW 13.8 % (11.5-14.5) 08/12/18 06:10 Plt Count 245 K/uL (130-400) 08/12/18 06:10 MPV 7.7 fl (7.2-11.7) 08/11/18 21:28 Neut % (Auto) 55.3 % (50.0-75.0) 08/11/18 21:28 Lymph % (Auto) 32.0 % (20.0-40.0) 08/11/18 21:28 [place] % (Auto) 11.0 % (0.0-10.0) H 08/11/18 21:28 Eos % (Auto) 0.8 % (0.0-4.0) 08/11/18 21:28 Baso % (Auto) 0.9 % (0.0-2.0) 08/11/18 21:28 Neut # (Auto) 2.0 K/uL (1.8-7.0) 08/11/18 21:28 Lymph # (Auto) 1.2 K/uL (1.0-4.3) 08/11/18 21:28 [place] # (Auto) 0.4 K/uL (0.0-0.8) 08/11/18 21:28 Eos # (Auto) 0.0 K/uL (0.0-0.7) 08/11/18 21:28 Baso # (Auto) 0.0 K/uL (0.0-0.2) 08/11/18 21:28 Sodium 135 mmol/l (132-148) 08/12/18 06:10 Potassium 3.3 MMOL/L (3.6-5.0) L 08/12/18 06:10 Chloride 98 mmol/L (98-107) 08/12/18 06:10 Carbon Dioxide 20 mmol/L (22-30) L 08/12/18 06:10 Anion Gap 20 (10-20) 08/12/18 06:10 BUN 6 mg/dl (9-20) L 08/12/18 06:10 Creatinine 0.4 mg/dl (0.8-1.5) L 08/12/18 06:10 Est GFR ( Amer) > 60 08/12/18 06:10 Est GFR (Non-Af Amer) > 60 08/12/18 06:10 POC Glucose (mg/dL) 333 mg/dL (65-110) H 08/12/18 11:05 Random Glucose 297 mg/dL (75-110) H 08/12/18 06:10 Calcium 7.6 mg/dL (8.4-10.2) L 08/12/18 06:10 Total Bilirubin 0.4 mg/dl (0.2-1.3) 08/12/18 06:10 AST 20 U/L (17-59) 08/12/18 06:10 ALT 19 U/L (21-72) L 08/12/18 06:10 Alkaline Phosphatase 73 U/L (38-126) 08/12/18 06:10 Total Protein 5.7 G/DL (6.3-8.2) L 08/12/18 06:10 Albumin 3.0 g/dL (3.5-5.0) L 08/12/18 06:10 Globulin 2.7 gm/dL (2.2-3.9) 08/12/18 06:10 Albumin/Globulin Ratio 1.1 (1.0-2.1) 08/12/18 06:10 Triglycerides 311 mg/DL (0-149) H D 08/12/18 06:10 Cholesterol 245 mg/dL (0-199) H 08/12/18 06:10 LDL Cholesterol Direct 129 mg/dL (0-129) 08/12/18 06:10 HDL Cholesterol 28 MG/DL (30-70) L 08/12/18 06:10 TSH 3rd Generation 1.33 mIU/ML (0.46-4.68) 08/12/18 06:10 Urine Color Colorless (YELLOW) 08/11/18 23:10 Urine Clarity Clear (Clear) 08/11/18 23:10 Urine pH 6.0 (5.0-8.0) 08/11/18 23:10 Ur Specific [place] 1.017 (1.003-1.030) 08/11/18 23:10 Urine Protein Negative mg/dL (NEGATIVE) 08/11/18 23:10 Urine Glucose (UA) >=500 mg/dL (NEGATIVE) 08/11/18 23:10 Urine Ketones 20 mg/dL (NEGATIVE) 08/11/18 23:10 Urine Blood Negative (NEGATIVE) 08/11/18 23:10 Urine Nitrate Negative (NEGATIVE) 08/11/18 23:10 Urine Bilirubin Negative (NEGATIVE) 08/11/18 23:10 Urine Urobilinogen 0.2-1.0 mg/dL (0.2-1.0) 08/11/18 23:10 Ur Leukocyte Esterase Neg Nesha/uL (Negative) 08/11/18 23:10 Urine RBC (Auto) 1 /hpf (0-3) 08/11/18 23:10 - Hospital Course Hospital Course: 53 y/o M with PMHx of DM presented to ED complaining of weight loss, polydipsia, polyuria and bilateral foot pain. Patient described b/l foot pain as burning, constant, 8/10 intensity, aggravated 3-4 days ago and aggravating. He reported losing ~20lbs in the past few months despite good appetite and eating more than enough. Patient is not compliant to his medications and has not been on insulin for >2 weeks duer to lack of insurancce In ER found to have Accu > 600 AG 26 HCO3 17 Na 131 He was admitted for uncontrolled Dm , started on IVF and insulin SQ His last Hgb A1c noted to be 17 Counselled patient on compliance with medications At present he is feeling better , hemodynamically stabl;e, afebrile Will d/c patient on Po Metformin and Glipizide Follow up with [facility] DX Uncontrolled DM type II Non compliance with medications Dyslipidemia Hypokalemia Dehydration Active smoker Discharge Exam - Head Exam Head Exam: ATRAUMATIC, NORMAL INSPECTION - Eye Exam Eye Exam: EOMI, Normal appearance, PERRL Pupil Exam: NORMAL ACCOMODATION - ENT Exam ENT Exam: Mucous Membranes Moist, Normal Exam - Neck Exam Neck exam: Full Rom, Normal Inspection - Respiratory Exam Respiratory Exam: Clear to PA & Lateral, NORMAL BREATHING PATTERN. absent: Rales, Rhonchi, Wheezes - Cardiovascular Exam Cardiovascular Exam: REGULAR RHYTHM, RRR, +S1, +S2. absent: JVD - GI/Abdominal Exam GI & Abdominal Exam: Normal Bowel Sounds, Soft. absent: Distended, Guarding, Rebound, Tenderness - Rectal Exam Rectal Exam: Deferred - Extremities Exam Extremities exam: normal capillary refill, normal inspection, pedal pulses present - Back Exam Back exam: NORMAL INSPECTION - Neurological Exam Neurological exam: Alert, CN II-XII Intact, Oriented x3 - Psychiatric Exam Psychiatric exam: Normal Affect, Normal Mood - Skin Skin Exam: Dry, Intact, Normal Color, Warm Discharge Plan - Discharge Medications Prescriptions: GlipiZIDE [Glucotrol] 10 mg PO BIDAC #60 tab Metformin HCl [Glucophage] 500 mg PO BID #60 tablet - Follow Up Plan Condition: GOOD Disposition: HOME/ ROUTINE Patient education suggested?: Yes Instructions: Diabetes Exchange Diet, Hyperglycemia, Adult (DC) Additional Instructions: hacer sherman con rooney doctor primario dentro de 1 semana Referrals: [facility] [place] [Outside]
== END 2018-08-12 14:14 | disposition home or self-care (01) ==
LOC: H.ER 20:32 → H.ERHOLD 23:24 → H.MEDSURG1 08-12 01:32
PROVIDERS: ADMIT Internal Medicine; ATTEND Internal Medicine
DX: E11.65 Type 2 diabetes mellitus with hyperglycemia (principal); E78.00 Pure hypercholesterolemia, unspecified; F17.210 Nicotine dependence, cigarettes, uncomplicated; H54.8 Legal blindness, as defined in USA; Z79.4 Long term (current) use of insulin; Z91.14 Patient's other noncompliance with medication regimen; Z59.9 Problem related to housing and economic circumstances, unspecified; E11.40 Type 2 diabetes mellitus with diabetic neuropathy, unspecified; M79.671 Pain in right foot; M79.672 Pain in left foot; E78.5 Hyperlipidemia, unspecified; E87.6 Hypokalemia; E86.0 Dehydration; I10 Essential (primary) hypertension; E87.1 Hypo-osmolality and hyponatremia; E83.51 Hypocalcemia
CPT/HCPCS: 36415; 80053; 80061; 81003; 82043; 82570; 82948; 83036; 84443; 85025; 85027; 93005; 96360; 96361; 96372; 96374; 99285; G0378; J1650; J7030